=== PATIENT | male | born 1935 | race Caucasian/White ===

== ENCOUNTER 2017-04-25 17:17 | Inpatient (IN) ==
[2017-04-25 18:03] LABS: ABG Base Excess -0.7 MMOL/L (-2.5-2.5); ABG HCO3 20.6 MMOL/L (20-26); ABG PCO2 25.5 MM HG (35-48); ABG PH 7.525 (7.35-7.45); ABG PO2 55.5 MM HG (80-95); ABG TCO2 21.4 MMOL/L (23-27); Allen Test Positive
[2017-04-25 18:06] LABS: Basophils # 0.1 10*3/uL (0.0-0.2); Basophils % 0.2 % (0.0-0.8); Hemoglobin 13.3 GM/DL (14.0-18.0); Immature Granulocytes % 0.7 %; Immature Granulocytes Absolute 0.14 #; Lymphocytes # 0.7 10*3/uL (1.4-4.0); Lymphocytes % 3.3 % (21.2-54.2); Mean Corpuscular HGB Conc 33.3 GM/DL (32-36); Mean Corpuscular Hemoglobin 28 PG (27-34); Mean Corpuscular Volume 85.5 FL (87-102); Mean Platelet Volume 10.3 FL (9.6-12.0); Monocytes # 0.5 10*3/uL (0.11-0.8); Monocytes % 2.2 % (1.7-12.7); Neutrophils # 18.7 10*3/uL (1.4-7.4); Neutrophils % 93.6 % (38.7-73.9); Platelet Count 155 T/CUMM (130-400); Red Blood Count 4.68 MC/CUMM (3.8-5.5); Red Cell Distribution Width 15.4 % (9.3-17.3)
[2017-04-25 18:32] LABS: Band Neutrophils 6 % (0-10); Calcium 9.1 MG/DL (8.5-10.1); Eosinophils 1 % (0-10); Giant Platelets Few; Hypochromasia 1+; Lymphocytes 4 % (20-55); Ovalocytes Slight; Platelet Estimate Normal; Potassium 3.7 MMOL/L (3.5-5.1); Segmented Neutrophils 87 % (50-85); Total Cells Counted 100; Total Protein 6.6 G/DL (6.4-8.3)
[2017-04-25 18:34] LABS: Apearance,Urine Slightly Hazy (Clear); Bilirubin,Urine Negative (Negative); Blood, Urine Negative (Negative); Glucose,Urine (UA) Negative (Negative); Hyaline Casts,Urine 1 /LPF (0-3); Ketones,Urine Negative (Negative); Mucus,Urine Occasional /LPF (Occasional); Nitrite,Urine Negative (Negative); Protein,Urine 100 MG/DL; RBC,Urine 4 /HPF (0-4); Squamous Epithelial Cell,Urine Occasional /HPF (0-10); Urine Color Yellow (Yellow); Urine Specific Gravity 1.026 (1.001-1.035); WBC,Urine 2 /HPF (0-6)
[2017-04-25] MEDS ORDERED: ACETAMINOPHEN 325 MG TABLET PO ONE (18:40)
[2017-04-25] MEDS ORDERED: ACETAMINOPHEN 325 MG TABLET ONE (18:41)
--- NOTE | 2017-04-25 18:49 | XRay Report ---
Portable chest April 25, 2017 at 1737 Indication: Shortness of breath, pneumonia Comparison: December 04, 2016 Findings: Cardiomediastinal contours are stable with evidence of prior coronary artery bypass graft and no change in pacemaker placement. Focal scarring within the left lung base, unchanged in appearance. Lungs are otherwise clear bilaterally. No acute osseous abnormalities. Visualized upper abdomen demonstrates no acute pathology. Impression: No acute cardiopulmonary findings PROCEDURE INTERPRETED AT [facility] DEPARTMENT OF RADIOLOGY Final Report Signed by: Ever Talyor
[2017-04-25] MEDS ORDERED: SODIUM CHLORIDE 0.9% 1,000 ML IV STA (18:56)
[2017-04-25] MEDS ORDERED: AZITHROMYCIN INJ 500 MG in SODIUM CHLORIDE 0.9% 250 ML IV STA (18:56)
[2017-04-25] MEDS ORDERED: cefTRIAXone 1,000 MG in SODIUM CHLORIDE 0.9% 100 ML IV STA (18:56)
[2017-04-25] MEDS ORDERED: cefTRIAXone 1,000 MG VIAL ONE (18:59)
--- NOTE | 2017-04-25 18:59 | Emergency Department Note ---
ISiva Manpreet, am scribing for, and in the presence of, Dennis Gutierrez MD 17:44 . Matt Irwin Hans, MD, personally performed the services described in this documentation, ascribed by Rolando Paniagua in my presence, and it is both accurate and complete [id number] . Arrival - Arrival Chief Complaint: Fever Stated Complaint: fever/no strength/cant stand ED Nursing Triage Note: C/o cough, fever, weakness, and "just not feeling well"- onset yesterday. Reports temp up to 103. Mode of Arrival: Wheelchair Limitations: No Limitations Source: Patient Time Seen by Provider: 04/25/17 17:34 - History of Present Illness HPI Narrative: Pt is a 81 y/o male who presents to the ED with CC of fever, MALDONADO, and cough since yesterday. pt has had problems with PNA and was in the ICU for November 2016 for 5 days on a ventilator. Pt denies any dysuria, UTI, swelling or any recent trips. Pt c/o being weak and CALDERÓN. No other problems/complaints reported to the ED. Onset (ago): day(s) (yesterday) Consistency: constant Severity: moderate Allergies/Adverse Reactions: Allergies Allergy/AdvReac Type Severity Reaction Status Date / Time levofloxacin [From Levaquin] AdvReac Severe Confusion Verified 12/05/16 09:57 Home Medications: Home Medications Medication Instructions Recorded Confirmed Type Atorvastatin [Lipitor] 40 mg PO QPM 03/01/15 04/25/17 History Multivitamin [One Daily] 1 tablet PO QAM 03/01/15 04/25/17 History OXcarbazepine [Trileptal] 300 mg PO BEDTIME 03/01/15 04/25/17 History Tiotropium Inhalation [Spiriva 1 puff INH QAM 03/01/15 04/25/17 History Handihaler] Aspirin [Ecotrin] 81 mg PO QAM 04/29/16 04/25/17 History Fluticasone 50 Mcg Nasal [place] 1 spray BOTH NARES DAILY 07/27/16 04/25/17 History [Flonase Nasal [place]] Nitroglycerin Sl Tab [Nitrostat] 0.4 mg SL Q5M PRN 07/27/16 04/25/17 History Fluticasone/Salmeterol 500-50 1 puff INH BID 12/05/16 04/25/17 History [Advair 500-50] Albuterol/Ipratropium Neb [Duoneb] 3 ml RESP TX TID #90 vial 12/07/16 04/25/17 Rx Carvedilol [Coreg] 6.25 mg PO BID #60 tablet 12/07/16 04/25/17 Rx Bumetanide [Bumetanide] 0.25 mg PO QOTHER DAY 04/25/17 04/25/17 History Losartan Potassium [Losartan 25 mg PO QAM 04/25/17 04/25/17 History Potassium] Montelukast Sodium 10 mg PO QAM 04/25/17 04/25/17 History Omeprazole [Omeprazole] 20 mg PO QPM 04/25/17 04/25/17 History Oxybutynin Xl [Ditropan Xl] 10 mg PO QAM 04/25/17 04/25/17 History Tamsulosin HCl [Tamsulosin HCl] 0.4 mg PO QPM 04/25/17 04/25/17 History Review of System - Review of System 12 point system: reviewed and no additional remarkable complaints except as stated - Review of System Constitutional: Present: chills, fever, weakness. Absent: diaphoresis Head/Ears/Nose/Throat: Absent: sore throat Respiratory: Present: cough, respiratory distress. Absent: wheezing Cardiovascular: Present: dyspnea on exertion Gastrointestinal: Absent: abdominal pain, nausea, vomiting Genitourinary male: Absent: dysuria Musculoskeletal: Absent: arm pain, back pain Neurological: Present: headache Medical,Surgical,& Family Hx - Medical History Cardio: History of: Aneurysm, CAD, Hypertension, Pacemaker Neurology: History of: Seizures (complex partial seizure) HEENT: History of: Eye Problem (cataracts) Endocrine: History of: Dyslipidemia Respiratory: History of: COPD, Obstructive Sleep Apnea, Pneumonia Renal: History of: Renal Problems (kidney removed) Gastrointestinal: History of: Diverticulitis/ Diverticulosis, GERD, Gastrointestinal Bleed (present), Hemorrhoids Musculoskeletal: History of: Back/Neck Problems (chronic lower back pain), Musculoskeletal Problems (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) No history of: Amputation - Surgical History Cardiac Surgeries: Sugical HX of: Femoral-Popliteal Bypass Graft, Cardiac Catheterization, Cardiac Surgery (cabg and AAA) Thoracic Surgeries: Surgical HX of;: Kidney (Renal Surgery) (right nephrectomy) , Nephrectomy HEENT Surgeries: Surgical HX of: Eye Surgery (cataract surgery) Abdominal Surgeries: Surgical HX of: Abdominal Surgery, Colonoscopy Reproductive Surgeries: Surgical HX of;: Genitourinary Surgery, Vasectomy - Family History Family History: Reports;: Family Cancer (sister), Family Diabetes (father), Family Heart Disease (siblings), Family Hypertension (sibling) Denies;: Family Psychiatric Problems, Family Stroke - Social History Smoking Status: Former smoker Frequency of Alcohol Use: None Type of Drug Use: None Exam Vital Signs: Vital Signs Temperature 102.7 F H 04/25/17 18:44 Pulse Rate 110 H 04/25/17 18:15 Respiratory Rate 20 04/25/17 18:15 Blood Pressure 134/59 04/25/17 18:15 O2 Sat by Pulse Oximetry 93 L 04/25/17 18:15 - General General appearance: alert, in no apparent distress - Head Head exam: Present: atraumatic, normocephalic, normal inspection - Eye Eye exam: Present: normal appearance, PERRL, EOMI - ENT ENT exam: Present: normal exam, normal oropharynx, mucous membranes moist, TM's normal bilaterally - Neck Neck exam: Present: normal inspection, full ROM, trachea midline - Chest Chest inspection: Present: normal inspection, symmetric chest wall rise - Respiratory Respiratory exam: Present: normal lung sounds bilaterally, accessory muscle use. Absent: respiratory distress - Cardiovascular Cardiovascular exam: Present: tachycardia, normal heart sounds. Absent: murmur , rubs, gallop - Abdominal Exam Abdominal exam: Present: soft, normal bowel sounds. Absent: distention, tenderness, guarding - Extremities Exam Extremities exam: Present: normal inspection, full ROM. Absent: tenderness - Back Exam Back exam: Present: normal inspection, full ROM. Absent: tenderness - Neurological Exam Neurological exam: Present: alert, oriented X3, CN II-XII intact, reflexes normal - Psychiatric Psychiatric exam: Present: normal affect, normal mood - Skin Skin exam: Present: warm, dry, intact, normal color. Absent: pallor Course Course Narrative: This patient was evaluated with lab work as well as chest x-ray and flu swab. He had a leukocytosis of 20,000 and his lactic acid was 4.3. ABG showed some respiratory alkalosis. I discussed his presentation with the hospitalist on- call who agreed to come and see him for admission. He did meet sepsis criteria so he was treated with IV fluids and antibiotics after his blood cultures were done. Results - Labs CBC & BMP: 04/25/17 17:55 04/25/17 17:55 Lab Results: I have reviewed the patients labs Labs: Laboratory Tests 04/25/17 17:55 ABG pH 7.525 H ABG pCO2 25.5 L ABG pO2 55.5 L ABG HCO3 20.6 ABG Total CO2 21.4 L ABG O2 Saturation 93.0 L ABG Base Excess -0.7 FiO2 28.00 Laboratory Tests 04/25/17 04/25/17 04/25/17 17:55 17:55 18:16 RBC 4.68 Hgb 13.3 L Hct 40.0 L MCV 85.5 L MCH 28 MCHC 33.3 RDW 15.4 Plt Count 155 MPV 10.3 Neut % (Auto) 93.6 H Lymph % (Auto) 3.3 L Gates % (Auto) 2.2 Eos % (Auto) 0.0 Baso % (Auto) 0.2 Neut # (Auto) 18.7 H Lymph # (Auto) 0.7 L Gates # (Auto) 0.5 Eos # (Auto) 0.0 Baso # (Auto) 0.1 Total Counted 100 Immature Gran % 0.7 Nucleated RBC % 0.0 Immature Gran # 0.14 Segmented Neutrophils 87 H Band Neutrophils 6 Monocytes 2 Eosinophils 1 Nucleated RBCs # 0.00 Platelet Estimate Normal Giant Platelets Few Immature Plt Fraction 0.0 Hypochromasia 1+ Ovalocytes Slight Sodium 136 Potassium 3.7 Chloride 101 Carbon Dioxide 28 Anion Gap 10.7 BUN 17 Creatinine 1.80 H GFR Calculation 39 BUN/Creatinine Ratio 9.00 Glucose 109 H Calculated Osmolality 274.0 Calcium 9.1 Total Bilirubin 1.00 AST 15 ALT 19 Alkaline Phosphatase 90 Total Protein 6.6 Albumin 3.0 L Globulin 3.6 H Albumin/Globulin Ratio 0.8 L Urine Color Yellow Urine Appearance Slightly hazy Urine pH 5.0 Ur Specific [place] 1.026 Urine Protein 100 Urine Glucose (UA) Negative Urine Ketones Negative Urine Blood Negative Urine Nitrate Negative Urine Bilirubin Negative Urine Urobilinogen 2.0 H Urine Leukocytes Negative Urine RBC 4 Urine WBC 2 Ur Squamous Epith Cells Occasional Hyaline Casts 1 Urine Mucus Occasional Ur Culture Indicated? Not indicated Disposition Clinical Impression: Sepsis, URI (upper respiratory infection) Case discussed with: patient, patient's family Condition: Guarded Time of Disposition: 18:59
[2017-04-25] MEDS ORDERED: AZITHROMYCIN 500 MG VIAL IV ONE (19:31)
--- NOTE | 2017-04-25 21:43 | Hospitalist History & Physical ---
Assessment and Plan - Time spent with patient Time spent with patient: Greater than 30 minutes (1) Sepsis Status: Acute Assessment and plan: Admit to hospitalist services. Source undertermined at this time. WBC 20.0. Lactic acid 4.3. CXR shows no acute findings. Blood cultures drawn in ER; follow. Bolus of fluids, Azithromycin, and ceftriaxone given in ER. O2 per unit protocol. Continue IV hydration with NS at 75 ml/hr. Vancomycin 1000 mg IV Q24 hours; consult pharmacy for dosing. Zosyn 2.25 mg IV originally ordered then adjusted by pharmacy to 3.375 mg IV Q8 hours. Recheck Lactic Acid, CBC, BMP, and procalcitonin in AM. This patient is a full code. Current Visit: Yes (2) Acute renal failure Status: Acute Assessment and plan: Bolus of fluids received in the ER. Continue gentle hydration of NS at 75 ml/hr. Recheck BMP in AM. Current Visit: Yes (3) Leukocytosis Status: Acute Assessment and plan: As above for Sepsis. Current Visit: No (4) Hypertension Status: Acute Assessment and plan: Blood pressure is currently low-normal at 100/57. Hold home BP meds for now; continue to monitor. Current Visit: No (5) COPD (chronic obstructive pulmonary disease) Status: Acute Assessment and plan: Continuous pulse ox. O2 per unit protocol. Continue home DuoNebs. Current Visit: No History of Present Illness Chief complaint: fever, chills, weakness History of present illness: Mr. Garza is a 81 year old male with a reported past medical history of COPD, HTN , pneumonia, complex partial seizures, CABG, aortic aneurysm s/p repair, and right nephrectomy who presented to the ED today with complaints of fever, chills and MALDONADO x 2 days with onset of weakness and inability to walk today. He denies N/V/D and reports only occasional cough that is minimally productive. He reports that he was previously admitted to the hospital in November of this year with pneumonia, and he was also intubated at that time. His work up in the ED showed a WBC count of 20.0, lactic acid of 4.3 and ABG derangement showing respiratory alkalosis. However, his CXR was negative for any acute findings at this time, and his urine was unremarkable. Currently, he is awake, alert and oriented and reports feeling somewhat better since receiving tylenol and some IV fluids in the ED. Hospitalist services were consulted, and the patient will be admitted to the medical-surgical floor for further evaluation and management. Home Medications Medication Instructions Recorded Confirmed Type Atorvastatin [Lipitor] 40 mg PO QPM 03/01/15 04/25/17 History Multivitamin [One Daily] 1 tablet PO QAM 03/01/15 04/25/17 History OXcarbazepine [Trileptal] 300 mg PO BEDTIME 03/01/15 04/25/17 History Tiotropium Inhalation [Spiriva 1 puff INH QAM 03/01/15 04/25/17 History Handihaler] Aspirin [Ecotrin] 81 mg PO QAM 04/29/16 04/25/17 History Fluticasone 50 Mcg Nasal [place] 1 spray BOTH NARES DAILY 07/27/16 04/25/17 History [Flonase Nasal [place]] Nitroglycerin Sl Tab [Nitrostat] 0.4 mg SL Q5M PRN 07/27/16 04/25/17 History Fluticasone/Salmeterol 500-50 1 puff INH BID 12/05/16 04/25/17 History [Advair 500-50] Albuterol/Ipratropium Neb [Duoneb] 3 ml RESP TX TID #90 vial 12/07/16 04/25/17 Rx Carvedilol [Coreg] 6.25 mg PO BID #60 tablet 12/07/16 04/25/17 Rx Bumetanide [Bumetanide] 0.25 mg PO QOTHER DAY 04/25/17 04/25/17 History Losartan Potassium [Losartan 25 mg PO QAM 04/25/17 04/25/17 History Potassium] Montelukast Sodium 10 mg PO QAM 04/25/17 04/25/17 History Omeprazole [Omeprazole] 20 mg PO QPM 04/25/17 04/25/17 History Oxybutynin Xl [Ditropan Xl] 10 mg PO QAM 04/25/17 04/25/17 History Tamsulosin HCl [Tamsulosin HCl] 0.4 mg PO QPM 04/25/17 04/25/17 History Allergies Allergy/AdvReac Type Severity Reaction Status Date / Time levofloxacin [From Levaquin] AdvReac Severe Confusion Verified 12/05/16 09:57 Medical,Surgical,& Family Hx - Medical History Cardio: History of: Aneurysm, CAD, Hypertension, Pacemaker Psychological: No history of: Anxiety Disorders, Depression Neurology: History of: Seizures (complex partial seizure) HEENT: History of: Eye Problem (cataracts) Endocrine: History of: Dyslipidemia Respiratory: History of: COPD, Obstructive Sleep Apnea, Pneumonia Renal: History of: Renal Problems (kidney removed) Gastrointestinal: History of: Diverticulitis/ Diverticulosis, GERD, Gastrointestinal Bleed (present), Hemorrhoids Musculoskeletal: History of: Back/Neck Problems (chronic lower back pain), Musculoskeletal Problems (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) No history of: Amputation Hematology: No history of: Bleeding Problems, Clotting Problems Other: No history of: Cancer - Surgical History Cardiac Surgeries: Sugical HX of: Femoral-Popliteal Bypass Graft, Cardiac Catheterization, Cardiac Surgery (cabg and AAA) Thoracic Surgeries: Surgical HX of;: Kidney (Renal Surgery) (right nephrectomy) , Nephrectomy HEENT Surgeries: Surgical HX of: Eye Surgery (cataract surgery) Abdominal Surgeries: Surgical HX of: Abdominal Surgery, Colonoscopy Reproductive Surgeries: Surgical HX of;: Genitourinary Surgery, Vasectomy - Family History Family History: Reports;: Family Cancer (sister), Family Diabetes (father), Family Heart Disease (siblings), Family Hypertension (sibling) Denies;: Family Psychiatric Problems, Family Stroke - Social History Smoking Status: Former smoker (quit in 1993) Have you smoked in the last 12 months: No Frequency of Alcohol Use: None Type of Drug Use: None Marital Status: Lives With:: Spouse Functional capacity: uses cane/walker (cane) 12 point system: reviewed and no additional remarkable complaints except as stated - Constitutional Constitutional: Present: chills, fever(s), headache(s), malaise, weakness - EENT Eyes: Absent: blurry vision, diplopia, loss of vision Ears: Absent: decreased hearing, ear discharge, ear pain Nose, mouth and throat: Present: headache(s). Absent: nasal congestion, sore throat - Cardiovascular Cardiovascular: Present: dyspnea, lightheadedness. Absent: chest pain at rest, chest pain with activity, edema, orthopnea, palpitations - Respiratory Respiratory: Present: cough, dyspnea - Gastrointestinal Gastrointestinal: Absent: diarrhea, nausea, vomiting - Genitourinary Genitourinary: Absent: dysuria, flank pain, hematuria - Musculoskeletal Musculoskeletal: Present: muscle weakness, myalgias. Absent: arthralgias, back pain - Neurological Neurological: Absent: confusion, disequilibrium, dizziness, numbness, paresthesias, syncope - Psychiatric Psychiatric: Absent: anxiety, depression - Endocrine Endocrine: Absent: cold intolerance, polydipsia, polyphagia, polyuria - Hematologic/Lymphatic Hematologic/Lymphatic: Absent: easy bleeding, easy bruising Exam - Constitutional Vitals: Period Temp Pulse Resp BP Sys/[place] Pulse Ox Last 24 Hr 101.7 F-102.7 F 100-116 20-26 127-160/59-72 85-94 - Head Head exam: Present: normal inspection, normocephalic, atraumatic - Eye Eye exam: Present: EOMI Pupils: Present: KAILYN - ENT ENT exam: Present: normal external ear exam, normal oropharynx - Neck Neck exam: Absent: lymphadenopathy, tenderness, thyromegaly - Respiratory Respiratory exam: Present: decreased breath sounds, rhonchi (right posterior) - Cardiovascular Cardiovascular exam: Present: tachycardia. Absent: diastolic murmur, gallop, irregular rhythm, JVD, rubs, systolic murmur - GI/Abdominal GI/Abdominal exam: Present: normal bowel sounds, soft. Absent: guarding, tenderness, rebound - Extremities Exam Extremities exam: Present: normal inspection, normal capillary refill. Absent: edema - Back Exam Back exam: Present: normal inspection - Neurological Exam Neurological exam: Present: alert, oriented X3, CN II-XII intact (grossly) - Psychiatric Psychiatric exam: Absent: anxious, depressed - Skin Skin exam: Present: normal color, dry, intact, other (hot). Absent: rash Results - Labs CBC & BMP: 04/25/17 17:55 04/25/17 17:55 Lab Results: I have reviewed the past 24 hour labs
[2017-04-25] MEDS: VANCOMYCIN INJ 1,250 MG in SODIUM CHLORIDE 0.9% 250 ML IV SCH (22:20)
[2017-04-26] MEDS: PIPERACILLIN/TAZOBACTAM 3,375 MG in SODIUM CHLORIDE 0.9% 100 ML IV SCH ×3 (03:13→17:40)
[2017-04-26] MEDS: SODIUM CHLORIDE 0.9% 1,000 ML IV SCH ×2 (03:13→15:28)
[2017-04-26 03:31] LABS: Basophils % 0.2 % (0.0-0.8); Eosinophils % 0.1 % (0.00-10.9); Hemoglobin 11.4 GM/DL (14.0-18.0); Immature Granulocytes % 1.6 %; Immature Granulocytes Absolute 0.39 #; Lymphocytes % 8.2 % (21.2-54.2); Mean Corpuscular HGB Conc 33.5 GM/DL (32-36); Mean Corpuscular Hemoglobin 29 PG (27-34); Mean Corpuscular Volume 85.2 FL (87-102); Mean Platelet Volume 10.8 FL (9.6-12.0); Monocytes % 4.1 % (1.7-12.7); Neutrophils # 20.5 10*3/uL (1.4-7.4); Neutrophils % 85.8 % (38.7-73.9); Platelet Count 141 T/CUMM (130-400); Red Blood Count 3.99 MC/CUMM (3.8-5.5); Red Cell Distribution Width 15.4 % (9.3-17.3); White Blood Count 23.9 T/CUMM (4-12)
[2017-04-26 04:11] LABS: Calcium 8.9 MG/DL (8.5-10.1); Osmolality,Calculated 279.4 MOS/KG (273-304); Potassium 3.9 MMOL/L (3.5-5.1)
[2017-04-26 05:19] LABS: Band Neutrophils 22 % (0-10); Lymphocytes 12 % (20-55); Metamyelocytes 1 %; Segmented Neutrophils 62 % (50-85); Total Cells Counted 100
[2017-04-26 05:20] LABS: Platelet Estimate Normal
--- NOTE | 2017-04-26 07:15 | Hospitalist Progress Note ---
Hospitalist: Subjective Interval history: Pt is coughing up yellowish brown sputum. No chest pain and denies SOB. Fever curve improved. Tolerating po though reports eating less than normal. No abd pain, nausea, vomiting, or dysuria. He complains of chronic back pain and requests [place] 10/325 which he normally takes at home. Exam - Constitutional Vitals: Period Temp Pulse Resp BP Sys/[place] Pulse Ox Last 24 Hr 98.1 F-102.7 F 83-116 18-26 100-160/56-76 85-96 Exam: GEN: Awake, alert and oriented x 3, lying in bed in NAD. HEENT: No thrush. Clear sclera CV: RRR nl S1/ S2. No M/R/G LUNGS: CTAB nonlabored, diminished ABD: Soft, NT, ND, +BS EXT: Warm. No clubbing, cyanosis or edema. [place]. Results - Labs CBC & BMP: 04/26/17 02:56 04/26/17 02:57 Labs: Blood culture- pending - Impressions (1) Sepsis possibly due to acute exacerbation of COPD- improving Status: Acute Assessment and plan: On admission, WBC 20.0. Lactic acid 4.3. CXR shows no acute findings. F/U Blood cultures O2 per unit protocol as needed Cont Vancomycin and Zosyn; pharmacy following for dosing. Procalcitonin ordered and pending . Add bronchodilators Current Visit: Yes (2) Acute renal failure Status: Acute Assessment and plan: Bolus of fluids received in the ER. Continue gentle hydration of NS at 75 ml/hr. Serial labs. Current Visit: Yes (3) Leukocytosis- slightly worse Status: Acute Assessment and plan: Cont treatment of above. I have looked at orders and I am unsure if patient received any IV steroids. He is not currently taking any at this time. Recheck labs in am. Current Visit: No (4) Hypertension Status: Acute Assessment and plan: Blood pressure is currently low-normal at 100/57. Cont to hold home BP meds for now; continue to monitor. Current Visit: No (5) COPD (chronic obstructive pulmonary disease) Status: Acute Assessment and plan: Continuous pulse ox. O2 per unit protocol. Continue home DuoNebs. Current Visit: No (6) Chronic back pain - [place] prn DVT prophylaxis- add Lovenox renally dosed. D/W pt and nurse. All questions answered. I will be away several days. One of my associates will follow in my absence.
[2017-04-26] MEDS: ALBUTEROL/IPRATROPIUM 3 ML NEB RESP TX SCH ×3 (08:19→19:38)
[2017-04-26] MEDS ORDERED: ENOXAPARIN 30 MG/0.3 ML SYRINGE SUBCUT SCH (13:30)
[2017-04-26] MEDS ORDERED: MORPHINE 2 MG/1 ML SYRINGE IV ONE (16:11)
[2017-04-26] MEDS: VANCOMYCIN INJ 1,250 MG in SODIUM CHLORIDE 0.9% 250 ML IV SCH (22:05)
[2017-04-27] MEDS: PIPERACILLIN/TAZOBACTAM 3,375 MG in SODIUM CHLORIDE 0.9% 100 ML IV SCH ×2 (02:05→09:39)
[2017-04-27 04:32] LABS: Basophils # 0.1 10*3/uL (0.0-0.2); Basophils % 0.4 % (0.0-0.8); Eosinophils # 0.3 10*3/uL (0.0-0.87); Eosinophils % 1.5 % (0.00-10.9); Hematocrit 35.5 VOL% (42.0-52.0); Hemoglobin 11.8 GM/DL (14.0-18.0); Immature Granulocytes % 0.9 %; Immature Granulocytes Absolute 0.15 #; Lymphocytes # 1.6 10*3/uL (1.4-4.0); Lymphocytes % 9.5 % (21.2-54.2); Mean Corpuscular HGB Conc 33.2 GM/DL (32-36); Mean Corpuscular Hemoglobin 29 PG (27-34); Mean Corpuscular Volume 86.4 FL (87-102); Mean Platelet Volume 10.6 FL (9.6-12.0); Monocytes # 0.7 10*3/uL (0.11-0.8); Neutrophils # 14.2 10*3/uL (1.4-7.4); Neutrophils % 83.7 % (38.7-73.9); Platelet Count 172 T/CUMM (130-400); Red Blood Count 4.11 MC/CUMM (3.8-5.5); Red Cell Distribution Width 15.3 % (9.3-17.3)
[2017-04-27 04:59] LABS: Albumin 2.6 G/DL (3.4-5.0); Calcium 9.1 MG/DL (8.5-10.1); Osmolality,Calculated 279.4 MOS/KG (273-304); Phosphorous 2.2 MG/DL (2.5-4.9); Potassium 3.5 MMOL/L (3.5-5.1)
[2017-04-27 05:10] LABS: Platelet Estimate Normal
[2017-04-27] MEDS: ALBUTEROL/IPRATROPIUM 3 ML NEB RESP TX SCH ×3 (07:23→20:01)
[2017-04-27] MEDS: SODIUM CHLORIDE 0.9% 1,000 ML IV SCH ×2 (09:39→16:33)
[2017-04-27] MEDS: ENOXAPARIN 40 MG/0.4 ML SYRINGE SUBCUT SCH (13:38)
--- NOTE | 2017-04-27 13:47 | Hospitalist Progress Note ---
Assessment and Plan (1) COPD exacerbation Status: Chronic Assessment and plan: The patient is being treated for COPD and pneumonia. The patient was initially showing evidence of acute kidney injury with creatinine 1.8 which is now improved to 1.5 with hydration. I am going to change Zosyn to Merrem and continue vancomycin. We will obtain pulmonary consultation with Dr. Couch in the morning. I will supplement potassium. We will recheck electrolytes tomorrow. I reviewed the progress to date with the patient and his at the bedside. Current Visit: No (2) Pneumonia involving right lung Status: Acute Current Visit: No Hospitalist: Subjective Interval history: This is an 81-year-old man with COPD and multiple hospitalizations by Dr. Couch. The patient presents to the hospital with cough fever and shortness of breath with sputum production consistent with lung infection. The patient is improving on standard COPD and pneumonia pathway. The patient had no new complaints today. The patient is able to move about the room with minimal to moderate assistance. He is accompanied by his who states that he is feeling better. The patient denies angina. Exam - Constitutional Vitals: Period Temp Pulse Resp BP Sys/[place] Pulse Ox Last 24 Hr 97.3 F-98.6 F 60-85 18-20 121-162/61-87 93-98 General appearance: mild distress - Respiratory Respiratory exam: Present: prolonged expiratory phase, rhonchi - Cardiovascular Cardiovascular exam: Present: regular rate and rhythm - GI/Abdominal GI/Abdominal exam: Present: normal bowel sounds Results - Labs CBC & BMP: 04/27/17 04:04 04/27/17 04:04 Lab Results: I have reviewed the past 24 hour labs
[2017-04-27] MEDS: POTASSIUM CHLORIDE 20 MEQ TABLET PO SCH ×2 (14:53→18:10)
[2017-04-27] MEDS: methylPREDNISolone SOD SUC 40 MG/1 ML VIAL IV SCH (14:53)
[2017-04-27] MEDS: MEROPENEM 1,000 MG in SODIUM CHLORIDE 0.9% 100 ML IV SCH (14:53)
[2017-04-27] MEDS ORDERED: ONDANSETRON 4 MG/2 ML VIAL IV PRN (16:18)
[2017-04-27] MEDS: VANCOMYCIN INJ 1,250 MG in SODIUM CHLORIDE 0.9% 250 ML IV SCH (20:35)
[2017-04-28 03:17] LABS: Basophils % 0.2 % (0.0-0.8); Hematocrit 31.9 VOL% (42.0-52.0); Hemoglobin 10.6 GM/DL (14.0-18.0); Immature Granulocytes % 1.2 %; Immature Granulocytes Absolute 0.08 #; Lymphocytes # 0.6 10*3/uL (1.4-4.0); Lymphocytes % 9.4 % (21.2-54.2); Mean Corpuscular HGB Conc 33.2 GM/DL (32-36); Mean Corpuscular Hemoglobin 29 PG (27-34); Mean Platelet Volume 10.5 FL (9.6-12.0); Monocytes # 0.2 10*3/uL (0.11-0.8); Monocytes % 2.6 % (1.7-12.7); Neutrophils # 5.6 10*3/uL (1.4-7.4); Neutrophils % 86.6 % (38.7-73.9); Platelet Count 177 T/CUMM (130-400); Red Blood Count 3.71 MC/CUMM (3.8-5.5); Red Cell Distribution Width 15.2 % (9.3-17.3); White Blood Count 6.5 T/CUMM (4-12)
[2017-04-28 03:50] LABS: Calcium 8.8 MG/DL (8.5-10.1); Magnesium 1.8 MG/DL (1.8-2.4); Osmolality,Calculated 277.7 MOS/KG (273-304); Potassium 4.6 MMOL/L (3.5-5.1)
[2017-04-28] MEDS: MEROPENEM 1,000 MG in SODIUM CHLORIDE 0.9% 100 ML IV SCH ×2 (03:58→21:47)
[2017-04-28] MEDS: methylPREDNISolone SOD SUC 40 MG/1 ML VIAL IV SCH ×2 (03:59→21:47)
[2017-04-28] MEDS: SODIUM CHLORIDE 0.9% 1,000 ML IV SCH ×3 (03:59→17:37)
[2017-04-28] MEDS: ALBUTEROL/IPRATROPIUM 3 ML NEB RESP TX SCH (07:28)
--- NOTE | 2017-04-28 08:12 | Pulmonology Consult Note ---
Assessment and Plan (1) COPD (chronic obstructive pulmonary disease) Status: Acute Assessment and plan: Patient has severe COPD. Hypoxemia on admission. Requiring oxygen. Getting bronchodilators. Does not appear to be having an exacerbation at present Current Visit: No (2) Coronary artery disease Status: Acute Assessment and plan: No signs of heart failure at present. No active angina. BNP was normal at 93. Current Visit: No (3) Sepsis Status: Acute Assessment and plan: Had a high fever of 102.7, elevated white count of 20,000, and lactic acidosis on admission. Blood cultures are negative thus far. Urinalysis looks normal. Chest x-ray is clear. On empiric antibiotics at present. May well have had a viral infection however the elevated white count leads us to giving antibiotics. Current Visit: Yes History of Present Illness Chief complaint: Fever and aching History of present illness: Mr. Garza is a 81 year old male who was admitted 3 days ago with an acute onset fever and aching all over. He does have COPD but was not having any problems with increased cough or sputum production. Does have a history of atherosclerotic heart disease and has a pacemaker. He has not had any purulent sputum. There has been no chest pain. Home Medications Medication Instructions Recorded Confirmed Type Atorvastatin [Lipitor] 40 mg PO QPM 03/01/15 04/25/17 History Multivitamin [One Daily] 1 tablet PO QAM 03/01/15 04/25/17 History OXcarbazepine [Trileptal] 300 mg PO BEDTIME 03/01/15 04/25/17 History Tiotropium Inhalation [Spiriva 1 puff INH QAM 03/01/15 04/25/17 History Handihaler] Aspirin [Ecotrin] 81 mg PO QAM 04/29/16 04/25/17 History Fluticasone 50 Mcg Nasal [place] 1 spray BOTH NARES DAILY 07/27/16 04/25/17 History [Flonase Nasal [place]] Nitroglycerin Sl Tab [Nitrostat] 0.4 mg SL Q5M PRN 07/27/16 04/25/17 History Fluticasone/Salmeterol 500-50 1 puff INH BID 12/05/16 04/25/17 History [Advair 500-50] Albuterol/Ipratropium Neb [Duoneb] 3 ml RESP TX TID #90 vial 12/07/16 04/25/17 Rx Carvedilol [Coreg] 6.25 mg PO BID #60 tablet 12/07/16 04/25/17 Rx Bumetanide [Bumetanide] 0.25 mg PO QOTHER DAY 04/25/17 04/25/17 History Losartan Potassium [Losartan 25 mg PO QAM 04/25/17 04/25/17 History Potassium] Montelukast Sodium 10 mg PO QAM 04/25/17 04/25/17 History Omeprazole [Omeprazole] 20 mg PO QPM 04/25/17 04/25/17 History Oxybutynin Xl [Ditropan Xl] 10 mg PO QAM 04/25/17 04/25/17 History Tamsulosin HCl [Tamsulosin HCl] 0.4 mg PO QPM 04/25/17 04/25/17 History Allergies Allergy/AdvReac Type Severity Reaction Status Date / Time levofloxacin [From Levaquin] AdvReac Severe Confusion Verified 12/05/16 09:57 12 point system: reviewed and no additional remarkable complaints except as stated - Constitutional Constitutional: Present: chills, fever(s) - EENT Nose, mouth and throat: Present: headache(s) - Cardiovascular Cardiovascular: Present: dyspnea, dyspnea on exertion, lightheadedness - Respiratory Respiratory: Present: cough, dyspnea, dyspnea on exertion - Musculoskeletal Musculoskeletal: Present: muscle weakness, myalgias - Neurological Neurological: Present: abnormal gait, dizziness Exam (Pulmonay) H&P - Constitutional Vitals: Period Temp Pulse Resp BP Sys/[place] Pulse Ox Last 24 Hr 97.0 F-97.9 F 69-86 16-20 139-150/71-93 91-99 Exam: He is afebrile. He had a temperature of 102.7 on admission. Vital signs otherwise normal male. Pupils react to light. Throat is clear. Neck supple no bruits. Chest shows expiratory phase prolonged. No wheezing. Heart normal rate and rhythm no murmurs. Abdomen soft nontender no masses. Bowel sounds present. Extremities no clubbing cyanosis edema. Calves nontender. Medical,Surgical,& Family Hx - Medical History Cardio: History of: Aneurysm, CAD, Hypertension, Pacemaker Psychological: No history of: Anxiety Disorders, Depression Neurology: History of: Seizures (complex partial seizure) HEENT: History of: Eye Problem (cataracts) Endocrine: History of: Dyslipidemia Respiratory: History of: COPD, Obstructive Sleep Apnea, Pneumonia Renal: History of: Renal Problems (kidney removed) Gastrointestinal: History of: Diverticulitis/ Diverticulosis, GERD, Gastrointestinal Bleed (present), Hemorrhoids Musculoskeletal: History of: Back/Neck Problems (chronic lower back pain), Musculoskeletal Problems (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) No history of: Amputation Hematology: No history of: Bleeding Problems, Clotting Problems Other: No history of: Cancer - Surgical History Cardiac Surgeries: Sugical HX of: Femoral-Popliteal Bypass Graft, Cardiac Catheterization, Cardiac Surgery (cabg and AAA) Thoracic Surgeries: Surgical HX of;: Kidney (Renal Surgery) (right nephrectomy) , Nephrectomy HEENT Surgeries: Surgical HX of: Eye Surgery (cataract surgery) Abdominal Surgeries: Surgical HX of: Abdominal Surgery, Colonoscopy Reproductive Surgeries: Surgical HX of;: Genitourinary Surgery, Vasectomy - Family History Family History: Reports;: Family Cancer (sister), Family Diabetes (father), Family Heart Disease (siblings), Family Hypertension (sibling) Denies;: Family Psychiatric Problems, Family Stroke - Social History Smoking Status: Former smoker (quit in 1993) Frequency of Alcohol Use: None Type of Drug Use: None Results - Labs CBC & BMP: 04/28/17 02:55 04/28/17 02:55 Lab Results: I have reviewed the past 24 hour labs - Diagnostic Findings Procedure: Chest x-ray: image reviewed by me (No acute infiltrates. Multiple old left rib fractures that are healed.)
[2017-04-28] MEDS ORDERED: NITROGLYCERIN SL 0.4 MG TABLET SL PRN (09:17)
[2017-04-28] MEDS ORDERED: BUMETANIDE 1 MG TABLET PO SCH (09:30)
--- NOTE | 2017-04-28 09:51 | Hospitalist Progress Note ---
Assessment and Plan (1) COPD exacerbation Status: Chronic Assessment and plan: He appears significantly improved today. He continues on albuterol ipratropium nebulizer therapy, intravenous methylprednisolone, and intravenous antibiotics including vancomycin and meropenem. He is being followed by Dr. Couch of pulmonary. Current Visit: No (2) Sepsis Status: Acute Assessment and plan: Sepsis appears resolved. His blood pressure today is 191/83, HR 70/min, and temperature 97.2F. Current Visit: No Qualifiers: Sepsis type: sepsis due to unspecified organism Qualified Code(s): A41.9 - Sepsis, unspecified organism (3) Acute respiratory failure Status: Acute Assessment and plan: His admission arterial blood gas demonstrated pH 7.525, PCO2 25.5, and PO2 55.5. His previously well known history of chronic respiratory failure. I will repeat an arterial blood gas. Current Visit: No (4) Acute renal failure Status: Acute Assessment and plan: His BUN and creatinine on admission were 17 and 1.8 respectively. Today they are 10 and 1.2 respectively. His acute renal failure appears to have resolved with intravenous fluids. Current Visit: Yes Hospitalist: Subjective Interval history: Mr. Garza states that he is feeling much better than when he came in the hospital. He is not experiencing any shortness of breath or coughing today. He has been treated for acute exacerbation of chronic obstructive pulmonary disease with albuterol ipratropium nebulizer therapy, intravenous methylprednisolone, and intravenous antibiotics including vancomycin and meropenem. He was seen in consultation today by Dr. Couch of pulmonary. I appreciate his consultation. Exam - Constitutional Vitals: Period Temp Pulse Resp BP Sys/[place] Pulse Ox Last 24 Hr 97.0 F-97.9 F 69-86 16-20 139-191/71-93 91-99 General appearance: no acute distress - Head Head exam: Present: normal inspection - Neck Neck exam: Present: normal inspection - Respiratory Respiratory exam: Present: clear to auscultation bilaterally - Cardiovascular Cardiovascular exam: Present: regular rate and rhythm - GI/Abdominal GI/Abdominal exam: Present: normal bowel sounds, soft, other (Nontender with no palpable masses or hepatosplenomegaly.) - Extremities Exam Extremities exam: Present: normal inspection - Neurological Exam Neurological exam: Present: alert, oriented X3 - Skin Skin exam: Present: normal color, warm, intact Results - Labs CBC & BMP: 04/28/17 02:55 04/28/17 02:55
[2017-04-28] MEDS: CARVEDILOL 6.25 MG TABLET PO SCH ×2 (10:00→16:40)
[2017-04-28] MEDS ORDERED: ALBUTEROL 2.5 MG/3 ML NEB RESP TX SCH (13:00)
[2017-04-28] MEDS: IPRATROPIUM 500 MCG/2.5 ML NEB RESP TX SCH ×3 (13:27→18:59)
[2017-04-28] MEDS ORDERED: PANTOPRAZOLE 40 MG TABLET PO SCH (13:30)
[2017-04-28] MEDS: ENOXAPARIN 40 MG/0.4 ML SYRINGE SUBCUT SCH (16:40)
[2017-04-28] MEDS: ALBUTEROL 2.5 MG/3 ML NEB RESP TX SCH (19:00)
[2017-04-28] MEDS ORDERED: ATORVASTATIN 40 MG TABLET PO SCH (21:00)
[2017-04-28] MEDS ORDERED: TAMSULOSIN 0.4 MG CAPSULE PO SCH (21:00)
[2017-04-28] MEDS ORDERED: OXcarbazepine 300 MG TABLET PO SCH (21:00)
[2017-04-28] MEDS: FLUTICASONE/SALMETEROL 500-50 DISKUS 14 DOSE INH SCH (21:47)
[2017-04-28] MEDS: VANCOMYCIN INJ 1,250 MG in SODIUM CHLORIDE 0.9% 250 ML IV SCH (21:48)
[2017-04-29 03:28] LABS: ABG Base Excess -1.1 MMOL/L (-2.5-2.5); ABG HCO3 23.5 MMOL/L (20-26); ABG Oxygen Saturation 95.3 % (95-100); ABG PCO2 34.8 MM HG (35-48); ABG PH 7.425 (7.35-7.45); ABG PO2 75.5 MM HG (80-95); ABG TCO2 20.8 MMOL/L (23-27)
[2017-04-29 03:36] LABS: Basophils % 0.1 % (0.0-0.8); Hematocrit 29.6 VOL% (42.0-52.0); Hemoglobin 9.9 GM/DL (14.0-18.0); Immature Granulocytes % 0.8 %; Immature Granulocytes Absolute 0.07 #; Lymphocytes # 0.7 10*3/uL (1.4-4.0); Lymphocytes % 7.7 % (21.2-54.2); Mean Corpuscular HGB Conc 33.4 GM/DL (32-36); Mean Corpuscular Hemoglobin 28 PG (27-34); Mean Corpuscular Volume 85.1 FL (87-102); Mean Platelet Volume 10.3 FL (9.6-12.0); Monocytes # 0.2 10*3/uL (0.11-0.8); Monocytes % 2.3 % (1.7-12.7); Neutrophils % 89.1 % (38.7-73.9); Platelet Count 198 T/CUMM (130-400); Red Blood Count 3.48 MC/CUMM (3.8-5.5); Red Cell Distribution Width 15.3 % (9.3-17.3)
[2017-04-29 03:59] LABS: Calcium 8.7 MG/DL (8.5-10.1)
[2017-04-29 04:00] LABS: Osmolality,Calculated 276.8 MOS/KG (273-304); Potassium 4.4 MMOL/L (3.5-5.1)
[2017-04-29 04:35] LABS: Anisocytosis 1+; Ovalocytes Few; Platelet Estimate Adequate
[2017-04-29] MEDS ORDERED: VANCOMYCIN INJ 1,250 MG in SODIUM CHLORIDE 0.9% 250 ML IV SCH (06:00)
--- NOTE | 2017-04-29 07:16 | Pulmonology Progress Note ---
Pulmonary - PN: Subj Interval history: This 81-year-old white male came in with a high fever and dehydration. He has COPD and atherosclerotic heart disease. He has only a mild cough. His chest x- ray does not show any infiltrates. Because of his high fever, high white count , and elevated lactic acid level is not clear. Presently he is on IV antibiotics and steroids. I will change him to oral prednisone. He is stable from pulmonary standpoint feeling better. Since cultures are all negative, it would be okay with me for him to be discharged on something like oral Omnicef. Needs prednisone 40 mg daily for about 5 more days. Exam (Progress Note) - Constitutional Vitals: Period Temp Pulse Resp BP Sys/[place] Pulse Ox Last 24 Hr 96.8 F-98.1 F 66-88 18-22 141-191/73-88 92-100 Exam: He is afebrile alert. Vital signs normal. Pupils react to light. Throat is clear. Neck supple no bruits. Chest reveals a few expiratory rhonchi. Heart normal rate rhythm no murmurs. Abdomen soft nontender no masses. Bowel sounds present. Extremities no clubbing cyanosis or edema. Calves nontender. Results - Labs CBC & BMP: 04/29/17 03:16 04/29/17 03:16 Lab Results: I have reviewed the past 24 hour labs Assessment and Plan (1) COPD (chronic obstructive pulmonary disease) Status: Acute Assessment and plan: Patient has severe COPD. Hypoxemia on admission. Requiring oxygen. Getting bronchodilators. Does not appear to be having an exacerbation at present 04/29/2017 appears stable from pulmonary standpoint as far as his COPD is concerned. Changed his Solu-Medrol to prednisone. Defer to primary service on antibiotics. Current Visit: No (2) Coronary artery disease Status: Acute Assessment and plan: No signs of heart failure at present. No active angina. BNP was normal at 93. 04/29/2017 no signs of heart failure or angina. Current Visit: No (3) Sepsis Status: Acute Assessment and plan: Had a high fever of 102.7, elevated white count of 20,000, and lactic acidosis on admission. Blood cultures are negative thus far. Urinalysis looks normal. Chest x-ray is clear. On empiric antibiotics at present. May well have had a viral infection however the elevated white count leads us to giving antibiotics. 04/29/17 this is controlled. Cultures have been negative thus far. Current Visit: Yes
[2017-04-29] MEDS: ALBUTEROL 2.5 MG/3 ML NEB RESP TX SCH (07:29)
--- NOTE | 2017-04-29 07:47 | XRay Report ---
Exam: XR chest 1V Date: 04/29/2017 4:00 AM Indication: COPD exacerbation Comparison: 04/25/2017 Technical: AP Findings: Cardiomegaly is present with a cardiac pacing device with atrial ventricular leads. Sternotomy wires are present. Low volume effusion present left base with underlying atelectatic change. Old left rib fractures are also present and pleural thickening. No pneumothorax. ASVD is present. A few scattered reticular nodular densities are present. Impression: 1. Cardiomegaly with low volume effusion and atelectatic change left base 2. Cardiomegaly and previous sternotomy and stepsister cardiac pacing device PROCEDURE INTERPRETED AT [facility] DEPARTMENT OF RADIOLOGY Final Report Signed by: Dr. Fuentes Loco
[2017-04-29] MEDS: IPRATROPIUM 500 MCG/2.5 ML NEB RESP TX SCH (08:36)
[2017-04-29] MEDS ORDERED: MONTELUKAST 10 MG TABLET PO SCH (09:00)
[2017-04-29] MEDS ORDERED: ASPIRIN EC 81 MG TABLET PO SCH (09:00)
[2017-04-29] MEDS ORDERED: predniSONE 20 MG TABLET PO SCH (09:00)
[2017-04-29] MEDS ORDERED: FLUTICASONE 50 MCG NASAL SPRAY 16 GM BOTTLE BOTH NARES SCH (09:00)
[2017-04-29] MEDS ORDERED: OXYBUTYNIN XL 10 MG TABLET PO SCH (09:00)
[2017-04-29] MEDS ORDERED: LOSARTAN 25 MG TABLET PO SCH (09:00)
[2017-04-29] MEDS ORDERED: MULTIVITAMIN (CENTRUM) TABLET PO SCH (09:00)
[2017-04-29] MEDS: FLUTICASONE/SALMETEROL 500-50 DISKUS 14 DOSE INH SCH (10:14)
[2017-04-29] MEDS: CARVEDILOL 6.25 MG TABLET PO SCH (10:14)
[2017-04-29] MEDS: MEROPENEM 1,000 MG in SODIUM CHLORIDE 0.9% 100 ML IV SCH (10:17)
[2017-04-29] MEDS: ENOXAPARIN 40 MG/0.4 ML SYRINGE SUBCUT SCH (10:18)
--- NOTE | 2017-04-29 10:52 | Discharge Summary ---
Hospital Course - Hospital Course Hospital Course: Patient was hospitalized with acute exacerbation of COPD, sepsis, and acute renal failure. He was seen in consultation by Dr. Couch of Pulmonary. He was treated with IV antibiotics, IV steroids, Duonebs, and IV normal saline. His acute renal failure resolved as did his sepsis. By the time of discharge he was not experiencing any dyspnea or coughing. Diagnosis - Discharge Diagnosis (1) COPD exacerbation Status: Acute (2) Sepsis Status: Acute (3) Acute respiratory failure Status: Acute (4) Acute renal failure Status: Acute Discharge Plan - Discharge Data Condition at Discharge: Stable Discharge Diet: advance to your usual diet Activity: resume usual activities as tolerated - Discharge Medications New predniSONE TAB [PredniSONE] 20 mg PO DAILY #7 tablet Cefdinir 300 mg PO BID #10 capsule Continue Multivitamin [One Daily] 1 tablet PO QAM Atorvastatin [Lipitor] 40 mg PO QPM Tiotropium Inhalation [Spiriva Handihaler] 1 puff INH QAM OXcarbazepine [Trileptal] 300 mg PO BEDTIME Aspirin [Ecotrin] 81 mg PO QAM Nitroglycerin Sl Tab [Nitrostat] 0.4 mg SL Q5M PRN PRN Reason: Chest Pain Fluticasone 50 Mcg Nasal [place] [Flonase Nasal [place]] 1 spray BOTH NARES DAILY Albuterol/Ipratropium Neb [Duoneb] 3 ml RESP TX TID #90 vial Carvedilol [Coreg] 6.25 mg PO BID #60 tablet Bumetanide 0.25 mg PO QOTHER DAY Omeprazole 20 mg PO QPM Montelukast Sodium 10 mg PO QAM Losartan Potassium 25 mg PO QAM Oxybutynin Xl [Ditropan Xl] 10 mg PO QAM Tamsulosin HCl 0.4 mg PO QPM Fluticasone/Salmeterol 500-50 [Advair 500-50] 1 puff INH BID - Follow Up or Referral - Forms/Instructions Exam - Constitutional Vitals: Period Temp Pulse Resp BP Sys/[place] Pulse Ox Last 24 Hr 96.8 F-98.1 F 66-88 18-22 141-192/73-99 92-100 Discharge Results Procedures and tests throughout hospitalization: Pending Orders 04/25/17 17:55 Blood Culture Stat 04/26/17 02:56 Procalcitonin, S IN AM Labs on day of discharge: Labs from last 24 hours 04/29/17 04/29/17 04/29/17 07:28 03:16 03:16 WBC 9.0 D RBC 3.48 L Hgb 9.9 L Hct 29.6 L MCV 85.1 L MCH 28 MCHC 33.4 RDW 15.3 Plt Count 198 MPV 10.3 Neut % (Auto) 89.1 H Lymph % (Auto) 7.7 L [place] % (Auto) 2.3 Eos % (Auto) 0.0 Baso % (Auto) 0.1 Neut # (Auto) 8.0 H Lymph # (Auto) 0.7 L [place] # (Auto) 0.2 Eos # (Auto) 0.0 Baso # (Auto) 0.0 Immature Gran % 0.8 Nucleated RBC % 0.0 Immature Gran # 0.07 Nucleated RBCs # 0.00 Platelet Estimate Adequate Immature Plt Fraction 0.0 Anisocytosis 1+ Ovalocytes Few ABG pH ABG pCO2 ABG pO2 ABG HCO3 ABG Total CO2 ABG O2 Saturation ABG Base Excess Sodium 137 Potassium 4.4 Chloride 106 Carbon Dioxide 25 Anion Gap 10.4 BUN 14 Creatinine 1.10 GFR Calculation 70 BUN/Creatinine Ratio 12.00 Glucose 148 H POC Glucose 133 H Calculated Osmolality 276.8 Calcium 8.7 Vancomycin Trough 04/29/17 04/28/17 03:15 19:19 WBC RBC Hgb Hct MCV MCH MCHC RDW Plt Count MPV Neut % (Auto) Lymph % (Auto) [place] % (Auto) Eos % (Auto) Baso % (Auto) Neut # (Auto) Lymph # (Auto) [place] # (Auto) Eos # (Auto) Baso # (Auto) Immature Gran % Nucleated RBC % Immature Gran # Nucleated RBCs # Platelet Estimate Immature Plt Fraction Anisocytosis Ovalocytes ABG pH 7.425 ABG pCO2 34.8 L ABG pO2 75.5 L ABG HCO3 23.5 ABG Total CO2 20.8 L ABG O2 Saturation 95.3 ABG Base Excess -1.1 Sodium Potassium Chloride Carbon Dioxide Anion Gap BUN Creatinine GFR Calculation BUN/Creatinine Ratio Glucose POC Glucose Calculated Osmolality Calcium Vancomycin Trough 12.3 Preliminary micro results at discharge 04/25/17 17:55 Blood Culture - Preliminary Blood No growth at 3 days 04/25/17 17:55 Blood Culture - Preliminary Blood No growth at 3 days DS: Provider Date of admission: 04/25/17 19:11 Primary care physician: Jan Couch MD Attending physician on admission: Ronald Sin MD Consults: 04/25/17 19:58 Consult to Pharmacy [CONS] Routine Reason for Pharmacy Consult: Dose/Manage Vancomycin 04/27/17 13:43 Consult to Physician [CONS] Routine Comment: please call consult on Thursday. COPD Consulting Provider: Jan Couch Discharging clinician: John Munoz
[2017-04-29 11:57] VITALS: BP 188/81
[2017-04-29] MEDS: SODIUM CHLORIDE 0.9% 1,000 ML IV SCH (15:00)
== END 2017-04-29 14:30 | disposition home or self-care (01) | DRG 871 ==
LOC: N.ED 17:17 → SUATTDRO 19:11 → N.EDINP 19:11 → N.2E 19:52
PROVIDERS: ADMIT Internal Medicine

== ENCOUNTER 2018-12-04 06:38 | Inpatient (IN) ==
[2018-12-04] MEDS ORDERED: PIPERACILLIN/TAZOBACTAM 3,375 MG in SODIUM CHLORIDE 0.9% 100 ML IV STA (07:03)
[2018-12-04 07:22] LABS: Basophils # 0.1 10*3/uL (0.0-0.2); Basophils % 0.3 % (0.0-0.8); Eosinophils % 0.1 % (0.00-10.9); Hematocrit 46.1 VOL% (42.0-52.0); Hemoglobin 14.7 GM/DL (14.0-18.0); Immature Granulocytes % 0.9 %; Immature Granulocytes Absolute 0.22 #; Lymphocytes # 1.2 10*3/uL (1.4-4.0); Lymphocytes % 4.5 % (21.2-54.2); Mean Corpuscular HGB Conc 31.9 GM/DL (32-36); Mean Corpuscular Hemoglobin 29 PG (27-34); Mean Corpuscular Volume 91.1 FL (87-102); Mean Platelet Volume 10.7 FL (9.6-12.0); Monocytes # 1.5 10*3/uL (0.11-0.8); Monocytes % 5.8 % (1.7-12.7); Neutrophils # 22.8 10*3/uL (1.4-7.4); Neutrophils % 88.4 % (38.7-73.9); Platelet Count 185 T/CUMM (130-400); Red Blood Count 5.06 MC/CUMM (3.8-5.5); Red Cell Distribution Width 14.6 % (9.3-17.3); White Blood Count 25.8 T/CUMM (4-12)
[2018-12-04 07:42] LABS: Albumin 3.4 G/DL (3.4-5.0); Bilirubin,Total 0.8 MG/DL (0.2-1.0); Calcium 8.9 MG/DL (8.5-10.1); Potassium 3.8 MMOL/L (3.5-5.1)
[2018-12-04 08:54] LABS: Band Neutrophils 32 % (0-10); Lymphocytes 2 % (20-55); Platelet Estimate Normal; Segmented Neutrophils 56 % (50-85); Total Cells Counted 100
[2018-12-04 08:55] LABS: Anisocytosis Slight; Macrocytosis Slight
[2018-12-04] MEDS ORDERED: ONDANSETRON 4 MG/2 ML VIAL IV PRN (09:04)
[2018-12-04] MEDS ORDERED: PROMETHAZINE 25 MG/1 ML VIAL IM PRN (09:04)
[2018-12-04] MEDS ORDERED: SODIUM CHLORIDE 0.9% 1,000 ML IV STA (09:08)
[2018-12-04 11:20] LABS: Apearance,Urine CLOUDY (Clear); Bilirubin,Urine Negative (Negative); Blood, Urine Small mg/dL (Negative); Glucose,Urine (UA) Negative (Negative); Ketones,Urine Negative (Negative); Mucus,Urine Occasional /LPF (Occasional); Nitrite,Urine Negative (Negative); Protein,Urine 30 MG/DL; RBC,Urine 5 /HPF (0-4); Urine Color Yellow (Yellow); Urine Specific Gravity 1.014 (1.001-1.035); WBC,Urine <1 /HPF (0-6)
[2018-12-04] MEDS: SODIUM CHLORIDE 0.9% 1,000 ML IV SCH (13:40)
[2018-12-04] MEDS: ENOXAPARIN 30 MG/0.3 ML SYRINGE SUBCUT SCH (13:54)
[2018-12-04] MEDS: PIPERACILLIN/TAZOBACTAM 3,375 MG in SODIUM CHLORIDE 0.9% 100 ML IV SCH ×2 (15:49→23:43)
[2018-12-04] MEDS: ALBUTEROL/IPRATROPIUM 3 ML NEB RESP TX SCH ×2 (15:55→20:10)
[2018-12-04] MEDS: DORNASE ALFA 2.5 MG/2.5 ML VIAL RESP TX SCH ×2 (15:55→20:17)
[2018-12-04] MEDS: ACETAMINOPHEN 325 MG TABLET PO PRN (17:21)
[2018-12-05 00:31] LABS: Apearance,Urine CLEAR (Clear); Bilirubin,Urine Negative (Negative); Blood, Urine Moderate mg/dL (Negative); Glucose,Urine (UA) Negative (Negative); Ketones,Urine Negative (Negative); Nitrite,Urine Negative (Negative); Protein,Urine Negative; RBC,Urine 1 /HPF (0-4); Urine Color Straw (Yellow); Urine Specific Gravity 1.005 (1.001-1.035); Urine Urobilinogen < 2.0 EU/DL (0.2-1.0); WBC,Urine 1 /HPF (0-6)
[2018-12-05] MEDS: ALBUTEROL/IPRATROPIUM 3 ML NEB RESP TX SCH ×4 (00:45→20:50)
[2018-12-05 04:52] LABS: Basophils # 0.1 10*3/uL (0.0-0.2); Basophils % 0.4 % (0.0-0.8); Eosinophils # 0.3 10*3/uL (0.0-0.87); Eosinophils % 1.2 % (0.00-10.9); Hematocrit 38.9 VOL% (42.0-52.0); Hemoglobin 12.2 GM/DL (14.0-18.0); Immature Granulocytes % 0.7 %; Immature Granulocytes Absolute 0.16 #; Lymphocytes # 2.8 10*3/uL (1.4-4.0); Lymphocytes % 12.4 % (21.2-54.2); Mean Corpuscular HGB Conc 31.4 GM/DL (32-36); Mean Corpuscular Hemoglobin 29 PG (27-34); Mean Platelet Volume 11.1 FL (9.6-12.0); Monocytes % 4.2 % (1.7-12.7); Neutrophils # 18.2 10*3/uL (1.4-7.4); Neutrophils % 81.1 % (38.7-73.9); Platelet Count 159 T/CUMM (130-400); Red Blood Count 4.23 MC/CUMM (3.8-5.5); Red Cell Distribution Width 14.9 % (9.3-17.3); White Blood Count 22.5 T/CUMM (4-12)
[2018-12-05 05:25] LABS: Band Neutrophils 7 % (0-10); Eosinophils 2 % (0-10); Lymphocytes 7 % (20-55); Segmented Neutrophils 80 % (50-85)
[2018-12-05 05:26] LABS: Platelet Estimate Adequate; Total Cells Counted 100
[2018-12-05 05:46] LABS: Calcium 8.5 MG/DL (8.5-10.1); Osmolality,Calculated 283.1 MOS/KG (273-304); Potassium 4.2 MMOL/L (3.5-5.1); Thyroid Stimulating Hormone 1.65 uIU/ml (0.358-3.74)
[2018-12-05] MEDS: SODIUM CHLORIDE 0.9% 1,000 ML IV SCH ×2 (06:51)
[2018-12-05] MEDS: DORNASE ALFA 2.5 MG/2.5 ML VIAL RESP TX SCH ×2 (07:20→20:50)
[2018-12-05] MEDS: PIPERACILLIN/TAZOBACTAM 3,375 MG in SODIUM CHLORIDE 0.9% 100 ML IV SCH ×2 (09:24→17:22)
[2018-12-05] MEDS: PANTOPRAZOLE 40 MG TABLET PO SCH (09:25)
[2018-12-05] MEDS: ENOXAPARIN 30 MG/0.3 ML SYRINGE SUBCUT SCH (12:58)
[2018-12-05] MEDS ORDERED: NITROGLYCERIN SL 0.4 MG TABLET SL PRN (13:08)
[2018-12-05] MEDS: CARVEDILOL 6.25 MG TABLET PO SCH (17:20)
[2018-12-05] MEDS ORDERED: Omeprazole [Omeprazole] 20 MG PO SCH (19:00)
[2018-12-05] MEDS ORDERED: ALBUTEROL/IPRATROPIUM 3 ML NEB RESP TX SCH (19:00)
[2018-12-05] MEDS: TAMSULOSIN 0.4 MG CAPSULE PO SCH (19:07)
[2018-12-05] MEDS ORDERED: CARVEDILOL 6.25 MG TABLET PO SCH (21:00)
[2018-12-05] MEDS: MEMANTINE 10 MG TABLET PO SCH (21:06)
[2018-12-05] MEDS: FLUTICASONE/SALMETEROL 500-50 DISKUS 14 DOSE INH SCH (21:06)
[2018-12-05] MEDS: ATORVASTATIN 40 MG TABLET PO SCH (21:06)
[2018-12-06] MEDS: PIPERACILLIN/TAZOBACTAM 3,375 MG in SODIUM CHLORIDE 0.9% 100 ML IV SCH ×3 (00:36→17:11)
[2018-12-06] MEDS: ALBUTEROL/IPRATROPIUM 3 ML NEB RESP TX SCH ×4 (00:53→19:30)
[2018-12-06 05:08] LABS: Basophils # 0.1 10*3/uL (0.0-0.2); Basophils % 0.5 % (0.0-0.8); Eosinophils # 0.3 10*3/uL (0.0-0.87); Eosinophils % 2.3 % (0.00-10.9); Hematocrit 33.4 VOL% (42.0-52.0); Hemoglobin 10.7 GM/DL (14.0-18.0); Immature Granulocytes % 0.5 %; Immature Granulocytes Absolute 0.06 #; Lymphocytes # 1.8 10*3/uL (1.4-4.0); Lymphocytes % 13.9 % (21.2-54.2); Mean Corpuscular Hemoglobin 29 PG (27-34); Mean Corpuscular Volume 90.5 FL (87-102); Monocytes # 0.8 10*3/uL (0.11-0.8); Monocytes % 6.3 % (1.7-12.7); Neutrophils # 10.1 10*3/uL (1.4-7.4); Neutrophils % 76.5 % (38.7-73.9); Platelet Count 146 T/CUMM (130-400); Red Blood Count 3.69 MC/CUMM (3.8-5.5); Red Cell Distribution Width 14.7 % (9.3-17.3); White Blood Count 13.3 T/CUMM (4-12)
[2018-12-06 05:29] LABS: Calcium 8.3 MG/DL (8.5-10.1); Osmolality,Calculated 281.1 MOS/KG (273-304); Potassium 3.8 MMOL/L (3.5-5.1)
[2018-12-06] MEDS ORDERED: IPRATROPIUM 500 MCG/2.5 ML NEB RESP TX SCH (07:00)
[2018-12-06] MEDS: DORNASE ALFA 2.5 MG/2.5 ML VIAL RESP TX SCH ×2 (07:25→19:36)
[2018-12-06] MEDS: LOSARTAN 25 MG TABLET PO SCH (09:23)
[2018-12-06] MEDS: PANTOPRAZOLE 40 MG TABLET PO SCH (09:24)
[2018-12-06] MEDS: MEMANTINE 10 MG TABLET PO SCH ×2 (09:24→20:39)
[2018-12-06] MEDS: CARVEDILOL 6.25 MG TABLET PO SCH ×2 (09:24→17:11)
[2018-12-06] MEDS: ASPIRIN EC 81 MG TABLET PO SCH (09:24)
[2018-12-06] MEDS: ENOXAPARIN 40 MG/0.4 ML SYRINGE SUBCUT SCH (09:24)
[2018-12-06] MEDS: NORTRIPTYLINE 10 MG CAPSULE PO SCH (09:24)
[2018-12-06] MEDS: MULTIVITAMIN (CENTRUM) TABLET PO SCH (09:24)
[2018-12-06] MEDS: FLUTICASONE/SALMETEROL 500-50 DISKUS 14 DOSE INH SCH ×2 (09:25→20:46)
[2018-12-06] MEDS: FLUTICASONE 50 MCG NASAL SPRAY 16 GM BOTTLE BOTH NARES SCH (09:26)
[2018-12-06] MEDS: ACETAMINOPHEN 325 MG TABLET PO PRN (20:39)
[2018-12-06] MEDS: ATORVASTATIN 40 MG TABLET PO SCH (20:39)
[2018-12-06] MEDS: TAMSULOSIN 0.4 MG CAPSULE PO SCH (20:39)
[2018-12-07] MEDS: ALBUTEROL/IPRATROPIUM 3 ML NEB RESP TX SCH ×3 (00:19→13:23)
[2018-12-07] MEDS: PIPERACILLIN/TAZOBACTAM 3,375 MG in SODIUM CHLORIDE 0.9% 100 ML IV SCH ×2 (01:30→09:15)
[2018-12-07 05:07] LABS: Basophils # 0.1 10*3/uL (0.0-0.2); Basophils % 0.5 % (0.0-0.8); Eosinophils # 0.6 10*3/uL (0.0-0.87); Eosinophils % 5.3 % (0.00-10.9); Hematocrit 35.6 VOL% (42.0-52.0); Hemoglobin 11.3 GM/DL (14.0-18.0); Immature Granulocytes % 0.6 %; Immature Granulocytes Absolute 0.06 #; Lymphocytes # 2.3 10*3/uL (1.4-4.0); Lymphocytes % 21.4 % (21.2-54.2); Mean Corpuscular HGB Conc 31.7 GM/DL (32-36); Mean Corpuscular Hemoglobin 29 PG (27-34); Mean Corpuscular Volume 91.3 FL (87-102); Mean Platelet Volume 11.2 FL (9.6-12.0); Monocytes # 0.7 10*3/uL (0.11-0.8); Monocytes % 6.7 % (1.7-12.7); Neutrophils % 65.5 % (38.7-73.9); Platelet Count 162 T/CUMM (130-400); Red Cell Distribution Width 14.7 % (9.3-17.3); White Blood Count 10.7 T/CUMM (4-12)
[2018-12-07 05:42] LABS: Calcium 8.5 MG/DL (8.5-10.1); Potassium 3.9 MMOL/L (3.5-5.1)
[2018-12-07] MEDS ORDERED: LACTATED RINGERS 500 ML IV ONE (07:00)
[2018-12-07] MEDS: DORNASE ALFA 2.5 MG/2.5 ML VIAL RESP TX SCH (07:05)
[2018-12-07] MEDS ORDERED: BUMETANIDE 1 MG TABLET PO SCH (09:00)
[2018-12-07] MEDS ORDERED: PROPOFOL 200 MG/20 ML VIAL IV ONE (10:00)
[2018-12-07] MEDS ORDERED: LIDOCAINE 2% 5 ML VIAL ONE (10:00)
[2018-12-07 13:17] VITALS: BP 168/71
[2018-12-07] MEDS: ASPIRIN EC 81 MG TABLET PO SCH (14:06)
[2018-12-07] MEDS: MULTIVITAMIN (CENTRUM) TABLET PO SCH (14:06)
[2018-12-07] MEDS: FLUTICASONE/SALMETEROL 500-50 DISKUS 14 DOSE INH SCH (14:06)
[2018-12-07] MEDS: MEMANTINE 10 MG TABLET PO SCH (14:06)
[2018-12-07] MEDS: PANTOPRAZOLE 40 MG TABLET PO SCH (14:06)
[2018-12-07] MEDS: CARVEDILOL 6.25 MG TABLET PO SCH (14:06)
[2018-12-07] MEDS: LOSARTAN 25 MG TABLET PO SCH (14:06)
[2018-12-07] MEDS: ENOXAPARIN 40 MG/0.4 ML SYRINGE SUBCUT SCH (14:07)
[2018-12-07] MEDS: FLUTICASONE 50 MCG NASAL SPRAY 16 GM BOTTLE BOTH NARES SCH (14:07)
[2018-12-07] MEDS: NORTRIPTYLINE 10 MG CAPSULE PO SCH (14:07)
== END 2018-12-07 14:50 | disposition home or self-care (01) | DRG 178 ==
LOC: N.ED 06:38 → EDUNIT# 06:38 → EDBD 06:38 → SUATTDRO 08:54 → N.EDINP 08:54 → N.2E 14:19
PROVIDERS: ADMIT Internal Medicine; ATTEND Internal Medicine

== ENCOUNTER 2019-05-14 12:33 | Inpatient (IN) ==
[2019-05-14] MEDS ORDERED: LACTATED RINGERS 1,000 ML IV ONE ×2 (13:03→16:00)
[2019-05-14] MEDS ORDERED: ACETAMINOPHEN 500 MG TABLET PO STA (13:06)
[2019-05-14 13:15] LABS: Basophils # 0.1 10*3/uL (0.0-0.2); Basophils % 0.4 % (0.0-0.8); Eosinophils # 0.1 10*3/uL (0.0-0.87); Eosinophils % 0.3 % (0.00-10.9); Hematocrit 44.3 VOL% (42.0-52.0); Hemoglobin 14.2 GM/DL (14.0-18.0); Immature Granulocytes % 1.3 %; Immature Granulocytes Absolute 0.33 #; Lymphocytes # 1.4 10*3/uL (1.4-4.0); Lymphocytes % 5.3 % (21.2-54.2); Mean Corpuscular HGB Conc 32.1 GM/DL (32-36); Mean Corpuscular Volume 89.7 FL (87-102); Mean Platelet Volume 10.4 FL (9.6-12.0); Monocytes % 6.9 % (1.7-12.7); Neutrophils % 85.8 % (38.7-73.9); Platelet Count 190 T/CUMM (130-400); Red Blood Count 4.94 MC/CUMM (3.8-5.5); Red Cell Distribution Width 14.8 % (9.3-17.3); White Blood Count 26.2 T/CUMM (4-12)
[2019-05-14 13:48] LABS: Alanine Aminotransferase 17 U/L (16-61); Albumin 3.3 G/DL (3.4-5.0); Alkaline Phosphatase 103 U/L (45-117); Aspartate Amino Transferase 16 U/L (0-37); Blood Urea Nitrogen 16 MG/DL (7-18); Calcium 9.3 MG/DL (8.5-10.1); Estimated Glom Filtration Rate 38 ML/MIN; Glucose 85 MG/DL (74-106); Osmolality,Calculated 274.7 MOS/KG (273-304); Total Protein 7.3 G/DL (6.4-8.3)
[2019-05-14 13:53] LABS: Band Neutrophils 1 % (0-10); Lymphocytes 21 % (20-55); Platelet Estimate Normal; Segmented Neutrophils 71 % (50-85); Total Cells Counted 100
[2019-05-14 13:54] LABS: Hypochromasia Slight; Microcytosis Slight
[2019-05-14] MEDS ORDERED: cefTRIAXone 1,000 MG in SODIUM CHLORIDE 0.9% 100 ML IV STA (14:12)
[2019-05-14] MEDS ORDERED: ACETAMINOPHEN 325 MG TABLET PO PRN (14:39)
[2019-05-14] MEDS ORDERED: ONDANSETRON 4 MG/2 ML VIAL IV PRN (14:45)
[2019-05-14] MEDS ORDERED: ALBUTEROL 1.25 MG/3 ML NEB RESP TX SCH (15:00)
[2019-05-14 15:49] LABS: Apearance,Urine CLEAR (Clear); Bilirubin,Urine Negative (Negative); Blood, Urine Small mg/dL (Negative); Glucose,Urine (UA) Negative (Negative); Ketones,Urine Negative (Negative); Mucus,Urine Occasional /LPF (Occasional); Nitrite,Urine Negative (Negative); Protein,Urine Negative; RBC,Urine 7 /HPF (0-4); Squamous Epithelial Cell,Urine Occasional /HPF (0-10); Urine Color Yellow (Yellow); Urine Urobilinogen < 2.0 EU/DL (0.2-1.0); WBC,Urine 7 /HPF (0-6)
[2019-05-14] MEDS: AZITHROMYCIN INJ 500 MG in SODIUM CHLORIDE 0.9% 250 ML IV SCH (17:12)
[2019-05-14] MEDS: SODIUM CHLORIDE 0.9% 1,000 ML IV SCH (17:12)
[2019-05-14] MEDS: ALBUTEROL 1.25 MG/3 ML NEB RESP TX SCH (19:04)
[2019-05-15] MEDS: ALBUTEROL 1.25 MG/3 ML NEB RESP TX SCH ×4 (01:31→19:47)
[2019-05-15 05:47] LABS: Basophils # 0.1 10*3/uL (0.0-0.2); Basophils % 0.5 % (0.0-0.8); Eosinophils # 0.2 10*3/uL (0.0-0.87); Eosinophils % 0.6 % (0.00-10.9); Hematocrit 36.9 VOL% (42.0-52.0); Hemoglobin 11.9 GM/DL (14.0-18.0); Immature Granulocytes % 1.4 %; Immature Granulocytes Absolute 0.42 #; Lymphocytes # 2.8 10*3/uL (1.4-4.0); Lymphocytes % 9.5 % (21.2-54.2); Mean Corpuscular HGB Conc 32.2 GM/DL (32-36); Mean Corpuscular Volume 89.8 FL (87-102); Mean Platelet Volume 10.2 FL (9.6-12.0); Monocytes % 5.4 % (1.7-12.7); Neutrophils % 82.6 % (38.7-73.9); Platelet Count 164 T/CUMM (130-400); Red Blood Count 4.11 MC/CUMM (3.8-5.5); Red Cell Distribution Width 15.1 % (9.3-17.3); White Blood Count 29.5 T/CUMM (4-12)
[2019-05-15 06:11] LABS: Albumin 2.5 G/DL (3.4-5.0); Bilirubin,Total 0.4 MG/DL (0.2-1.0); Calcium 8.7 MG/DL (8.5-10.1); Osmolality,Calculated 279.4 MOS/KG (273-304); Risk Ratio 3.76; Thyroid Stimulating Hormone 1.1 uIU/ml (0.358-3.74); Total Protein 5.9 G/DL (6.4-8.3); VLDL CHOLESTEROL 9.2 MG/DL
[2019-05-15 06:14] LABS: Hypochromasia Slight; Microcytosis Slight; Platelet Estimate Adequate
[2019-05-15] MEDS: SODIUM CHLORIDE 0.9% 1,000 ML IV SCH ×2 (06:23→17:52)
[2019-05-15] MEDS ORDERED: MAGNESIUM SULF RIDER 4 GM in PREMIX 1 EACH IV PRN (07:17)
[2019-05-15] MEDS: ENOXAPARIN 40 MG/0.4 ML SYRINGE SUBCUT SCH (08:11)
[2019-05-15] MEDS: cefTRIAXone 1,000 MG in SYRINGE 1 EACH IV SCH (08:12)
[2019-05-15] MEDS: PANTOPRAZOLE 40 MG TABLET PO SCH (08:12)
[2019-05-15] MEDS: MAGNESIUM SULF RIDER 2 GM in PREMIX 1 EACH IV PRN (08:13)
[2019-05-15] MEDS ORDERED: ENOXAPARIN 40 MG/0.4 ML SYRINGE SUBCUT SCH (09:00)
[2019-05-15] MEDS: AZITHROMYCIN INJ 500 MG in SODIUM CHLORIDE 0.9% 250 ML IV SCH (15:59)
[2019-05-16] MEDS: ALBUTEROL 1.25 MG/3 ML NEB RESP TX SCH ×4 (00:32→18:30)
[2019-05-16 05:16] LABS: Basophils # 0.1 10*3/uL (0.0-0.2); Basophils % 0.3 % (0.0-0.8); Eosinophils # 0.4 10*3/uL (0.0-0.87); Eosinophils % 2.1 % (0.00-10.9); Hematocrit 35.9 VOL% (42.0-52.0); Hemoglobin 11.5 GM/DL (14.0-18.0); Immature Granulocytes % 0.6 %; Immature Granulocytes Absolute 0.11 #; Lymphocytes # 2.5 10*3/uL (1.4-4.0); Lymphocytes % 14.1 % (21.2-54.2); Mean Corpuscular Volume 89.5 FL (87-102); Mean Platelet Volume 10.7 FL (9.6-12.0); Monocytes % 4.8 % (1.7-12.7); Neutrophils % 78.1 % (38.7-73.9); Platelet Count 170 T/CUMM (130-400); Red Blood Count 4.01 MC/CUMM (3.8-5.5); Red Cell Distribution Width 15.2 % (9.3-17.3); White Blood Count 17.3 T/CUMM (4-12)
[2019-05-16 05:43] LABS: Albumin 2.6 G/DL (3.4-5.0); Bilirubin,Total 0.6 MG/DL (0.2-1.0); Calcium 8.6 MG/DL (8.5-10.1); Osmolality,Calculated 286.8 MOS/KG (273-304); Total Protein 6.5 G/DL (6.4-8.3)
[2019-05-16] MEDS: SODIUM CHLORIDE 0.9% 1,000 ML IV SCH ×2 (08:16→21:52)
[2019-05-16] MEDS: ENOXAPARIN 40 MG/0.4 ML SYRINGE SUBCUT SCH (08:18)
[2019-05-16] MEDS: cefTRIAXone 1,000 MG in SYRINGE 1 EACH IV SCH (08:19)
[2019-05-16] MEDS: PANTOPRAZOLE 40 MG TABLET PO SCH (08:19)
[2019-05-16] MEDS: AZITHROMYCIN INJ 500 MG in SODIUM CHLORIDE 0.9% 250 ML IV SCH (15:26)
[2019-05-16] MEDS ORDERED: NITROGLYCERIN SL 0.4 MG TABLET SL PRN (17:38)
[2019-05-16] MEDS ORDERED: hydrALAZINE 20 MG/1 ML VIAL IV ONE (17:39)
[2019-05-16] MEDS: carvediloL 6.25 MG TABLET PO SCH (20:53)
[2019-05-16] MEDS: ATORVASTATIN 40 MG TABLET PO SCH (20:53)
[2019-05-16] MEDS: NORTRIPTYLINE 25 MG CAPSULE PO SCH (20:53)
[2019-05-16] MEDS: TAMSULOSIN 0.4 MG CAPSULE PO SCH (20:53)
[2019-05-16] MEDS: MEMANTINE 10 MG TABLET PO SCH (20:53)
[2019-05-16] MEDS: FLUTICASONE/SALMETEROL 500-50 DISKUS 14 DOSE INH SCH (21:53)
[2019-05-17 05:30] LABS: Basophils # 0.1 10*3/uL (0.0-0.2); Basophils % 0.6 % (0.0-0.8); Eosinophils # 0.4 10*3/uL (0.0-0.87); Eosinophils % 3.5 % (0.00-10.9); Hematocrit 35.5 VOL% (42.0-52.0); Immature Granulocytes % 0.5 %; Immature Granulocytes Absolute 0.06 #; Lymphocytes # 2.3 10*3/uL (1.4-4.0); Lymphocytes % 19.8 % (21.2-54.2); Mean Corpuscular Volume 92.2 FL (87-102); Mean Platelet Volume 10.7 FL (9.6-12.0); Monocytes % 7.5 % (1.7-12.7); Neutrophils % 68.1 % (38.7-73.9); Platelet Count 173 T/CUMM (130-400); Red Blood Count 3.85 MC/CUMM (3.8-5.5); Red Cell Distribution Width 15.3 % (9.3-17.3); White Blood Count 11.6 T/CUMM (4-12)
[2019-05-17 05:44] LABS: Albumin 2.4 G/DL (3.4-5.0); Bilirubin,Total 1.5 MG/DL (0.2-1.0); Calcium 8.4 MG/DL (8.5-10.1)
[2019-05-17] MEDS: SODIUM CHLORIDE 0.9% 1,000 ML IV SCH ×3 (05:44→20:17)
[2019-05-17] MEDS: ALBUTEROL 1.25 MG/3 ML NEB RESP TX SCH ×4 (07:21→18:30)
[2019-05-17] MEDS ORDERED: FLUTICASONE FUROATE BOTH NARES SCH (09:00)
[2019-05-17] MEDS ORDERED: MULTIVITAMIN (CENTRUM) TABLET PO SCH (09:00)
[2019-05-17] MEDS: cefTRIAXone 1,000 MG in SYRINGE 1 EACH IV SCH (09:01)
[2019-05-17] MEDS: ENOXAPARIN 40 MG/0.4 ML SYRINGE SUBCUT SCH (09:01)
[2019-05-17] MEDS: CYANOCOBALAMIN 500 MCG TABLET PO SCH (09:02)
[2019-05-17] MEDS: ASPIRIN EC 81 MG TABLET PO SCH (09:02)
[2019-05-17] MEDS: PANTOPRAZOLE 40 MG TABLET PO SCH (09:02)
[2019-05-17] MEDS: MULTIVITAMIN (CENTRUM) TABLET PO SCH (09:02)
[2019-05-17] MEDS: carvediloL 6.25 MG TABLET PO SCH ×2 (09:02→17:30)
[2019-05-17] MEDS: LOSARTAN 25 MG TABLET PO SCH (09:02)
[2019-05-17] MEDS: MEMANTINE 10 MG TABLET PO SCH ×2 (09:02→21:00)
[2019-05-17] MEDS: FLUTICASONE/SALMETEROL 500-50 DISKUS 14 DOSE INH SCH ×2 (09:03→21:00)
[2019-05-17] MEDS: AZITHROMYCIN INJ 500 MG in SODIUM CHLORIDE 0.9% 250 ML IV SCH (15:00)
[2019-05-17] MEDS: TAMSULOSIN 0.4 MG CAPSULE PO SCH (20:58)
[2019-05-17] MEDS: ATORVASTATIN 40 MG TABLET PO SCH (20:59)
[2019-05-17] MEDS: NORTRIPTYLINE 25 MG CAPSULE PO SCH (20:59)
[2019-05-17] MEDS: QUEtiapine 25 MG TABLET PO SCH (21:00)
[2019-05-18] MEDS: ALBUTEROL 1.25 MG/3 ML NEB RESP TX SCH ×4 (00:21→19:26)
[2019-05-18] MEDS: SODIUM CHLORIDE 0.9% 1,000 ML IV SCH ×4 (01:29→23:35)
[2019-05-18 05:08] LABS: Basophils # 0.1 10*3/uL (0.0-0.2); Basophils % 0.6 % (0.0-0.8); Eosinophils # 0.4 10*3/uL (0.0-0.87); Eosinophils % 4.4 % (0.00-10.9); Hematocrit 36.1 VOL% (42.0-52.0); Hemoglobin 11.5 GM/DL (14.0-18.0); Immature Granulocytes % 0.6 %; Immature Granulocytes Absolute 0.06 #; Lymphocytes # 1.9 10*3/uL (1.4-4.0); Lymphocytes % 19.4 % (21.2-54.2); Mean Corpuscular HGB Conc 31.9 GM/DL (32-36); Mean Platelet Volume 11.3 FL (9.6-12.0); Monocytes % 6.3 % (1.7-12.7); Neutrophils % 68.7 % (38.7-73.9); Platelet Count 178 T/CUMM (130-400); Red Blood Count 4.01 MC/CUMM (3.8-5.5); Red Cell Distribution Width 15.2 % (9.3-17.3); White Blood Count 9.8 T/CUMM (4-12)
[2019-05-18 05:13] LABS: Calcium 8.5 MG/DL (8.5-10.1)
[2019-05-18] MEDS: MAGNESIUM SULF RIDER 2 GM in PREMIX 1 EACH IV PRN (06:04)
[2019-05-18] MEDS: ASPIRIN EC 81 MG TABLET PO SCH (10:01)
[2019-05-18] MEDS: cefTRIAXone 1,000 MG in SYRINGE 1 EACH IV SCH (10:01)
[2019-05-18] MEDS: MULTIVITAMIN (CENTRUM) TABLET PO SCH (10:02)
[2019-05-18] MEDS: MEMANTINE 10 MG TABLET PO SCH ×2 (10:02→21:49)
[2019-05-18] MEDS: LOSARTAN 25 MG TABLET PO SCH (10:03)
[2019-05-18] MEDS: QUEtiapine 25 MG TABLET PO SCH ×2 (10:03→21:49)
[2019-05-18] MEDS: PANTOPRAZOLE 40 MG TABLET PO SCH (10:03)
[2019-05-18] MEDS: carvediloL 6.25 MG TABLET PO SCH ×2 (10:03→17:58)
[2019-05-18] MEDS: ENOXAPARIN 40 MG/0.4 ML SYRINGE SUBCUT SCH (10:03)
[2019-05-18] MEDS: FLUTICASONE/SALMETEROL 500-50 DISKUS 14 DOSE INH SCH ×2 (10:06→21:49)
[2019-05-18] MEDS: CYANOCOBALAMIN 500 MCG TABLET PO SCH (10:07)
[2019-05-18] MEDS: AZITHROMYCIN INJ 500 MG in SODIUM CHLORIDE 0.9% 250 ML IV SCH (15:58)
[2019-05-18] MEDS: ATORVASTATIN 40 MG TABLET PO SCH (21:49)
[2019-05-18] MEDS: NORTRIPTYLINE 25 MG CAPSULE PO SCH (21:49)
[2019-05-18] MEDS: TAMSULOSIN 0.4 MG CAPSULE PO SCH (21:49)
[2019-05-19] MEDS: ALBUTEROL 1.25 MG/3 ML NEB RESP TX SCH ×4 (00:39→20:57)
[2019-05-19] MEDS: SODIUM CHLORIDE 0.9% 1,000 ML IV SCH ×3 (01:05→17:41)
[2019-05-19] MEDS: PANTOPRAZOLE 40 MG TABLET PO SCH (09:30)
[2019-05-19] MEDS: ENOXAPARIN 40 MG/0.4 ML SYRINGE SUBCUT SCH (09:30)
[2019-05-19] MEDS: QUEtiapine 25 MG TABLET PO SCH ×2 (09:30→20:59)
[2019-05-19] MEDS: ASPIRIN EC 81 MG TABLET PO SCH (09:30)
[2019-05-19] MEDS: FLUTICASONE/SALMETEROL 500-50 DISKUS 14 DOSE INH SCH ×2 (09:31→21:03)
[2019-05-19] MEDS: MULTIVITAMIN (CENTRUM) TABLET PO SCH (09:31)
[2019-05-19] MEDS: CYANOCOBALAMIN 500 MCG TABLET PO SCH (09:31)
[2019-05-19] MEDS: MEMANTINE 10 MG TABLET PO SCH ×2 (09:31→21:05)
[2019-05-19] MEDS: LOSARTAN 25 MG TABLET PO SCH (09:31)
[2019-05-19] MEDS: cefTRIAXone 1,000 MG in SYRINGE 1 EACH IV SCH (09:32)
[2019-05-19] MEDS: carvediloL 6.25 MG TABLET PO SCH ×2 (09:34→17:40)
[2019-05-19] MEDS: AZITHROMYCIN INJ 500 MG in SODIUM CHLORIDE 0.9% 250 ML IV SCH (14:33)
[2019-05-19] MEDS ORDERED: hydrALAZINE 20 MG/1 ML VIAL IV PRN (20:43)
[2019-05-19] MEDS: ATORVASTATIN 40 MG TABLET PO SCH (21:00)
[2019-05-19] MEDS: NORTRIPTYLINE 25 MG CAPSULE PO SCH (21:00)
[2019-05-19] MEDS: TAMSULOSIN 0.4 MG CAPSULE PO SCH (21:00)
[2019-05-20] MEDS: ALBUTEROL 1.25 MG/3 ML NEB RESP TX SCH ×4 (01:44→12:31)
[2019-05-20] MEDS: SODIUM CHLORIDE 0.9% 1,000 ML IV SCH ×2 (02:12→07:40)
[2019-05-20 04:52] LABS: Basophils # 0.1 10*3/uL (0.0-0.2); Eosinophils # 0.6 10*3/uL (0.0-0.87); Eosinophils % 4.9 % (0.00-10.9); Hematocrit 41.6 VOL% (42.0-52.0); Hemoglobin 13.3 GM/DL (14.0-18.0); Immature Granulocytes % 0.7 %; Immature Granulocytes Absolute 0.09 #; Lymphocytes # 3.2 10*3/uL (1.4-4.0); Lymphocytes % 26.3 % (21.2-54.2); Mean Corpuscular Volume 89.3 FL (87-102); Mean Platelet Volume 11.3 FL (9.6-12.0); Monocytes % 6.5 % (1.7-12.7); Neutrophils % 60.6 % (38.7-73.9); Platelet Count 252 T/CUMM (130-400); Red Blood Count 4.66 MC/CUMM (3.8-5.5); Red Cell Distribution Width 15.3 % (9.3-17.3); White Blood Count 12.2 T/CUMM (4-12)
[2019-05-20 05:30] LABS: Calcium 9.1 MG/DL (8.5-10.1); Osmolality,Calculated 279.3 MOS/KG (273-304)
[2019-05-20] MEDS ORDERED: GLYCOPYRROLATE 0.4 MG/2 ML VIAL IM ONE (07:00)
[2019-05-20] MEDS ORDERED: PROMETHAZINE 25 MG/1 ML VIAL IM ONE (07:00)
[2019-05-20] MEDS ORDERED: MEPERIDINE 50 MG/1 ML VIAL IM ONE (07:00)
[2019-05-20] MEDS ORDERED: MIDAZOLAM 2 MG/2 ML VIAL ONE (07:10)
[2019-05-20] MEDS ORDERED: MIDAZOLAM 2 MG/2 ML VIAL IV ONE (07:30)
[2019-05-20] MEDS ORDERED: LIDOCAINE 2% VISCOUS 100 ML BOTTLE SWISH/SPIT ONE (07:30)
[2019-05-20] MEDS ORDERED: LIDOCAINE 1% 20 ML VIAL MISC INJ ONE (07:30)
[2019-05-20] MEDS ORDERED: LIDOCAINE 2% 20 ML VIAL RESP TX ONE (07:30)
[2019-05-20] MEDS: CYANOCOBALAMIN 500 MCG TABLET PO SCH (10:17)
[2019-05-20] MEDS: QUEtiapine 25 MG TABLET PO SCH (10:18)
[2019-05-20] MEDS: MULTIVITAMIN (CENTRUM) TABLET PO SCH (10:18)
[2019-05-20] MEDS: ASPIRIN EC 81 MG TABLET PO SCH (10:18)
[2019-05-20] MEDS: MEMANTINE 10 MG TABLET PO SCH (10:19)
[2019-05-20] MEDS: carvediloL 6.25 MG TABLET PO SCH (10:19)
[2019-05-20] MEDS: PANTOPRAZOLE 40 MG TABLET PO SCH (10:19)
[2019-05-20] MEDS: LOSARTAN 25 MG TABLET PO SCH (10:19)
[2019-05-20] MEDS: cefTRIAXone 1,000 MG in SYRINGE 1 EACH IV SCH (10:20)
[2019-05-20] MEDS: ENOXAPARIN 40 MG/0.4 ML SYRINGE SUBCUT SCH (10:21)
[2019-05-20] MEDS: FLUTICASONE/SALMETEROL 500-50 DISKUS 14 DOSE INH SCH (10:21)
[2019-05-20 12:14] VITALS: BP 159/81
== END 2019-05-20 13:50 | disposition home or self-care (01) | DRG 194 ==
LOC: EDBD → EDUNIT# → N.ED 12:33 → N.EDINP 15:22 → SUATTDRO 15:22 → N.5E 15:49
PROVIDERS: ATTEND Internal Medicine
PROC: BRONCHB (2019-05-20 07:35)

== ENCOUNTER 2019-07-03 07:13 | Inpatient (IN) ==
[2019-07-03] MEDS ORDERED: ONDANSETRON 4 MG/2 ML VIAL IV STA (07:37)
[2019-07-03 08:04] LABS: Basophils # 0.1 10*3/uL (0.0-0.2); Basophils % 0.5 % (0.0-0.8); Eosinophils # 0.1 10*3/uL (0.0-0.87); Eosinophils % 0.3 % (0.00-10.9); Hematocrit 40.7 VOL% (42.0-52.0); Hemoglobin 13.4 GM/DL (14.0-18.0); Immature Granulocytes % 0.8 %; Immature Granulocytes Absolute 0.18 #; Lymphocytes # 1.1 10*3/uL (1.4-4.0); Lymphocytes % 4.5 % (21.2-54.2); Mean Corpuscular HGB Conc 32.9 GM/DL (32-36); Mean Corpuscular Volume 87.5 FL (87-102); Mean Platelet Volume 9.7 FL (9.6-12.0); Monocytes % 5.4 % (1.7-12.7); Neutrophils % 88.5 % (38.7-73.9); Platelet Count 263 T/CUMM (130-400); Red Blood Count 4.65 MC/CUMM (3.8-5.5); Red Cell Distribution Width 14.9 % (9.3-17.3)
[2019-07-03 08:28] LABS: Alanine Aminotransferase 22 U/L (16-61); Albumin 3.3 G/DL (3.4-5.0); Alkaline Phosphatase 92 U/L (45-117); Aspartate Amino Transferase 18 U/L (0-37); Bilirubin,Total < 0.39 MG/DL (0.2-1.0); Blood Urea Nitrogen 13 MG/DL (7-18); Estimated Glom Filtration Rate 47 ML/MIN; Glucose 121 MG/DL (74-106); Osmolality,Calculated 279.4 MOS/KG (273-304); Total Protein 6.9 G/DL (6.4-8.3)
[2019-07-03 08:54] LABS: Apearance,Urine CLEAR (Clear); Bilirubin,Urine Negative (Negative); Blood, Urine Negative (Negative); Glucose,Urine (UA) Negative (Negative); Ketones,Urine Negative (Negative); Mucus,Urine Occasional /LPF (Occasional); Nitrite,Urine Negative (Negative); Protein,Urine 30 MG/DL; RBC,Urine 2 /HPF (0-4); Urine Color Yellow (Yellow); Urine Specific Gravity 1.014 (1.001-1.035); Urine Urobilinogen < 2.0 EU/DL (0.2-1.0); WBC,Urine 1 /HPF (0-6)
[2019-07-03] MEDS ORDERED: cefTRIAXone 1,000 MG in SODIUM CHLORIDE 0.9% 100 ML IV STA (09:05)
[2019-07-03 09:20] LABS: Band Neutrophils 2 % (0-10); Lymphocytes 4 % (20-55); Microcytosis 1+; Segmented Neutrophils 85 % (50-85); Total Cells Counted 100
[2019-07-03 09:21] LABS: Platelet Estimate Normal; Polychromasia Slight; Spherocytes 1+
[2019-07-03] MEDS ORDERED: ACETAMINOPHEN 325 MG TABLET PO PRN (10:28)
[2019-07-03] MEDS ORDERED: ONDANSETRON 4 MG/2 ML VIAL IV PRN (10:28)
[2019-07-03 11:03] LABS: Risk Ratio 5.56; Thyroid Stimulating Hormone 2.35 uIU/ml (0.358-3.74); VLDL CHOLESTEROL 26.8 MG/DL
[2019-07-03] MEDS ORDERED: ALBUTEROL 2.5 MG/3 ML NEB RESP TX PRN (11:33)
[2019-07-03] MEDS: SODIUM CHLORIDE 0.9% 1,000 ML IV SCH (13:43)
[2019-07-03] MEDS ORDERED: NITROGLYCERIN SL 0.4 MG TABLET SL PRN (13:43)
[2019-07-03] MEDS ORDERED: LACTULOSE 20 GM/30 ML UDCUP PO PRN (13:48)
[2019-07-03] MEDS: ALBUTEROL/IPRATROPIUM 3 ML NEB RESP TX SCH ×2 (14:19→20:35)
[2019-07-03] MEDS ORDERED: MAGNESIUM CITRATE 300 ML BOTTLE PO ONE (15:18)
[2019-07-03] MEDS: BENZONATATE 100 MG CAPSULE PO SCH ×2 (15:38→20:55)
[2019-07-03] MEDS: AZITHROMYCIN INJ 500 MG in SODIUM CHLORIDE 0.9% 250 ML IV SCH (15:38)
[2019-07-03] MEDS: DOCUSATE SODIUM 100 MG CAPSULE PO SCH (20:22)
[2019-07-03] MEDS: ATORVASTATIN 40 MG TABLET PO SCH (20:22)
[2019-07-03] MEDS: NORTRIPTYLINE 25 MG CAPSULE PO SCH (20:22)
[2019-07-03] MEDS: TAMSULOSIN 0.4 MG CAPSULE PO SCH (20:22)
[2019-07-03] MEDS: POLYETHYLENE GLYCOL POWDER 17 GM PACK PO SCH (20:23)
[2019-07-03] MEDS: QUEtiapine 25 MG TABLET PO SCH (20:23)
[2019-07-03] MEDS: ENOXAPARIN 40 MG/0.4 ML SYRINGE SUBCUT SCH (20:23)
[2019-07-03] MEDS: PANTOPRAZOLE 40 MG TABLET PO SCH (20:23)
[2019-07-03] MEDS: carvediloL 6.25 MG TABLET PO SCH (20:23)
[2019-07-03] MEDS: MEMANTINE 10 MG TABLET PO SCH (20:53)
[2019-07-04] MEDS: ALBUTEROL/IPRATROPIUM 3 ML NEB RESP TX SCH ×4 (00:56→18:56)
[2019-07-04 06:05] LABS: Basophils # 0.1 10*3/uL (0.0-0.2); Basophils % 0.9 % (0.0-0.8); Eosinophils # 0.5 10*3/uL (0.0-0.87); Eosinophils % 3.4 % (0.00-10.9); Hematocrit 35.2 VOL% (42.0-52.0); Immature Granulocytes % 0.5 %; Immature Granulocytes Absolute 0.07 #; Lymphocytes # 2.3 10*3/uL (1.4-4.0); Lymphocytes % 15.3 % (21.2-54.2); Mean Corpuscular HGB Conc 31.3 GM/DL (32-36); Mean Corpuscular Volume 90.3 FL (87-102); Mean Platelet Volume 9.7 FL (9.6-12.0); Monocytes % 7.1 % (1.7-12.7); Neutrophils % 72.8 % (38.7-73.9); Platelet Count 214 T/CUMM (130-400); Red Cell Distribution Width 15.4 % (9.3-17.3); White Blood Count 14.8 T/CUMM (4-12)
[2019-07-04 06:25] LABS: Calcium 8.4 MG/DL (8.5-10.1); Osmolality,Calculated 277.5 MOS/KG (273-304)
[2019-07-04 06:44] LABS: Hypochromasia 1+; Microcytosis 1+; Platelet Estimate Adequate
[2019-07-04] MEDS: MULTIVITAMIN (CENTRUM) TABLET PO SCH (09:20)
[2019-07-04] MEDS: DOCUSATE SODIUM 100 MG CAPSULE PO SCH ×2 (09:20→20:17)
[2019-07-04] MEDS: POLYETHYLENE GLYCOL POWDER 17 GM PACK PO SCH ×2 (09:20→20:20)
[2019-07-04] MEDS: ASPIRIN EC 81 MG TABLET PO SCH (09:20)
[2019-07-04] MEDS: carvediloL 6.25 MG TABLET PO SCH ×2 (09:21→20:17)
[2019-07-04] MEDS: CYANOCOBALAMIN 500 MCG TABLET PO SCH (09:21)
[2019-07-04] MEDS: QUEtiapine 25 MG TABLET PO SCH ×2 (09:21→20:18)
[2019-07-04] MEDS: BENZONATATE 100 MG CAPSULE PO SCH ×3 (09:22→20:18)
[2019-07-04] MEDS: LINACLOTIDE 145 MCG CAPSULE PO SCH (09:24)
[2019-07-04] MEDS: MEMANTINE 10 MG TABLET PO SCH ×2 (09:24→20:18)
[2019-07-04] MEDS: LOSARTAN 25 MG TABLET PO SCH (09:24)
[2019-07-04] MEDS: cefTRIAXone 1,000 MG in SYRINGE 1 EACH IV SCH (09:25)
[2019-07-04] MEDS: FLUTICASONE FUROATE BOTH NARES SCH (09:32)
[2019-07-04] MEDS: SODIUM CHLORIDE 0.9% 1,000 ML IV SCH ×2 (09:33→14:59)
[2019-07-04] MEDS: AZITHROMYCIN INJ 500 MG in SODIUM CHLORIDE 0.9% 250 ML IV SCH (13:20)
[2019-07-04 16:13] LABS: Apearance,Urine CLEAR (Clear); Bilirubin,Urine Negative (Negative); Blood, Urine Negative (Negative); Glucose,Urine (UA) Negative (Negative); Ketones,Urine Negative (Negative); Nitrite,Urine Negative (Negative); Protein,Urine Negative; RBC,Urine 1 /HPF (0-4); Urine Color Straw (Yellow); Urine Specific Gravity 1.005 (1.001-1.035); Urine Urobilinogen < 2.0 EU/DL (0.2-1.0); WBC,Urine <1 /HPF (0-6)
[2019-07-04] MEDS: PANTOPRAZOLE 40 MG TABLET PO SCH (18:12)
[2019-07-04] MEDS: ATORVASTATIN 40 MG TABLET PO SCH (18:12)
[2019-07-04] MEDS: TAMSULOSIN 0.4 MG CAPSULE PO SCH (18:12)
[2019-07-04] MEDS: NORTRIPTYLINE 25 MG CAPSULE PO SCH (20:17)
[2019-07-04] MEDS: ENOXAPARIN 40 MG/0.4 ML SYRINGE SUBCUT SCH (20:20)
[2019-07-05] MEDS: ALBUTEROL/IPRATROPIUM 3 ML NEB RESP TX SCH ×3 (01:17→13:25)
[2019-07-05 04:47] LABS: Basophils # 0.1 10*3/uL (0.0-0.2); Basophils % 1.1 % (0.0-0.8); Eosinophils # 0.7 10*3/uL (0.0-0.87); Eosinophils % 6.9 % (0.00-10.9); Hematocrit 33.5 VOL% (42.0-52.0); Hemoglobin 10.6 GM/DL (14.0-18.0); Immature Granulocytes % 0.6 %; Immature Granulocytes Absolute 0.06 #; Lymphocytes # 1.9 10*3/uL (1.4-4.0); Lymphocytes % 19.6 % (21.2-54.2); Mean Corpuscular HGB Conc 31.6 GM/DL (32-36); Mean Corpuscular Volume 89.6 FL (87-102); Mean Platelet Volume 10.2 FL (9.6-12.0); Monocytes % 9.7 % (1.7-12.7); Neutrophils % 62.1 % (38.7-73.9); Platelet Count 205 T/CUMM (130-400); Red Blood Count 3.74 MC/CUMM (3.8-5.5); Red Cell Distribution Width 15.1 % (9.3-17.3); White Blood Count 9.9 T/CUMM (4-12)
[2019-07-05 05:17] LABS: Calcium 8.1 MG/DL (8.5-10.1); Osmolality,Calculated 277.4 MOS/KG (273-304)
[2019-07-05] MEDS ORDERED: AZITHROMYCIN 250 MG TABLET PO SCH (09:00)
[2019-07-05] MEDS: DOCUSATE SODIUM 100 MG CAPSULE PO SCH (09:00)
[2019-07-05] MEDS: MULTIVITAMIN (CENTRUM) TABLET PO SCH (09:02)
[2019-07-05] MEDS: CYANOCOBALAMIN 500 MCG TABLET PO SCH (09:02)
[2019-07-05] MEDS: ASPIRIN EC 81 MG TABLET PO SCH (09:02)
[2019-07-05] MEDS: QUEtiapine 25 MG TABLET PO SCH (09:02)
[2019-07-05] MEDS: carvediloL 6.25 MG TABLET PO SCH (09:02)
[2019-07-05] MEDS: MEMANTINE 10 MG TABLET PO SCH (09:02)
[2019-07-05] MEDS: BENZONATATE 100 MG CAPSULE PO SCH ×2 (09:03→14:58)
[2019-07-05] MEDS: LINACLOTIDE 145 MCG CAPSULE PO SCH (09:03)
[2019-07-05] MEDS: LOSARTAN 25 MG TABLET PO SCH (09:03)
[2019-07-05] MEDS: cefTRIAXone 1,000 MG in SYRINGE 1 EACH IV SCH (09:04)
[2019-07-05] MEDS: FLUTICASONE FUROATE BOTH NARES SCH (09:04)
[2019-07-05] MEDS: POLYETHYLENE GLYCOL POWDER 17 GM PACK PO SCH (09:04)
[2019-07-05 12:26] VITALS: BP 128/71
[2019-07-05] MEDS: SODIUM CHLORIDE 0.9% 1,000 ML IV SCH (16:08)
== END 2019-07-05 17:07 | disposition home health service (06) | DRG 194 ==
LOC: EDBD → EDUNIT# → N.ED 07:13 → N.EDINP 07:13 → SUATTDRO 10:28 → N.EDINP 12:11 → N.4E 12:43
PROVIDERS: ADMIT Hospitalist; ATTEND Internal Medicine

== ENCOUNTER 2019-08-21 07:14 | Inpatient (IN) ==
[2019-08-21 08:11] LABS: Basophils # 0.1 10*3/uL (0.0-0.2); Basophils % 0.4 % (0.0-0.8); Eosinophils % 0.2 % (0.00-10.9); Hematocrit 41.3 VOL% (42.0-52.0); Immature Granulocytes % 0.5 %; Lymphocytes # 1.3 10*3/uL (1.4-4.0); Lymphocytes % 6.9 % (21.2-54.2); Mean Corpuscular HGB Conc 31.5 GM/DL (32-36); Mean Corpuscular Volume 91.6 FL (87-102); Mean Platelet Volume 9.9 FL (9.6-12.0); Monocytes % 6.5 % (1.7-12.7); Neutrophils % 85.5 % (38.7-73.9); Platelet Count 175 T/CUMM (130-400); Red Blood Count 4.51 MC/CUMM (3.8-5.5); Red Cell Distribution Width 17.1 % (9.3-17.3); White Blood Count 18.3 T/CUMM (4-12)
[2019-08-21 08:33] LABS: Albumin 2.7 G/DL (3.4-5.0); Bilirubin,Total 0.6 MG/DL (0.2-1.0); Calcium 8.6 MG/DL (8.5-10.1); Osmolality,Calculated 275.8 MOS/KG (273-304); Total Protein 6.3 G/DL (6.4-8.3)
[2019-08-21 08:34] LABS: Band Neutrophils 7 % (0-10); Eosinophils 1 % (0-10); Hypochromasia Slight; Lymphocytes 6 % (20-55); Platelet Estimate Adequate; Segmented Neutrophils 81 % (50-85); Total Cells Counted 100
[2019-08-21 09:12] LABS: Apearance,Urine CLEAR (Clear); Bilirubin,Urine Negative (Negative); Blood, Urine Negative (Negative); Glucose,Urine (UA) Negative (Negative); Hyaline Casts,Urine 3 /LPF (0-3); Ketones,Urine Negative (Negative); Mucus,Urine Occasional /LPF (Occasional); Nitrite,Urine Negative (Negative); Protein,Urine Negative; RBC,Urine 3 /HPF (0-4); Urine Color Yellow (Yellow); Urine Specific Gravity 1.011 (1.001-1.035); Urine Urobilinogen < 2.0 EU/DL (0.2-1.0); WBC,Urine 1 /HPF (0-6)
[2019-08-21] MEDS ORDERED: PIPERACILLIN/TAZOBACTAM 4,500 MG in SODIUM CHLORIDE 0.9% 100 ML IV STA ×2 (09:39→09:40)
[2019-08-21] MEDS ORDERED: PIPERACILLIN/TAZOBACTAM 4,500 MG VIAL IV ONE (09:40)
[2019-08-21] MEDS ORDERED: PROCHLORPERAZINE 10 MG TABLET PO PRN (11:03)
[2019-08-21] MEDS ORDERED: NITROGLYCERIN SL 0.4 MG TABLET SL PRN (11:03)
[2019-08-21] MEDS: SODIUM CHLORIDE 0.9% 1,000 ML IV SCH (13:20)
[2019-08-21] MEDS: predniSONE 20 MG TABLET PO SCH ×2 (13:21→20:55)
[2019-08-21] MEDS: ALBUTEROL/IPRATROPIUM 3 ML NEB RESP TX SCH ×2 (14:13→20:22)
[2019-08-21] MEDS: PIPERACILLIN/TAZOBACTAM 3,375 MG in SODIUM CHLORIDE 0.9% 100 ML IV SCH (17:45)
[2019-08-21] MEDS: FLUTICASONE/SALMETEROL 500-50 DISKUS 14 DOSE INH SCH (20:25)
[2019-08-21] MEDS: carvediloL 6.25 MG TABLET PO SCH (20:54)
[2019-08-21] MEDS: ENOXAPARIN 30 MG/0.3 ML SYRINGE SUBCUT SCH (20:54)
[2019-08-21] MEDS: MEMANTINE 10 MG TABLET PO SCH (20:54)
[2019-08-21] MEDS: NORTRIPTYLINE 25 MG CAPSULE PO SCH (20:54)
[2019-08-21] MEDS: DOCUSATE SODIUM 100 MG CAPSULE PO SCH (20:55)
[2019-08-21] MEDS: ACETAMINOPHEN 325 MG TABLET PO PRN (20:55)
[2019-08-21] MEDS: QUEtiapine 25 MG TABLET PO SCH (20:55)
[2019-08-21] MEDS: TAMSULOSIN 0.4 MG CAPSULE PO SCH (20:55)
[2019-08-21] MEDS: ATORVASTATIN 40 MG TABLET PO SCH (20:55)
[2019-08-22] MEDS: ALBUTEROL/IPRATROPIUM 3 ML NEB RESP TX SCH ×4 (00:58→19:55)
[2019-08-22] MEDS: SODIUM CHLORIDE 0.9% 1,000 ML IV SCH ×2 (02:26→10:14)
[2019-08-22] MEDS: PIPERACILLIN/TAZOBACTAM 3,375 MG in SODIUM CHLORIDE 0.9% 100 ML IV SCH ×3 (02:27→17:54)
[2019-08-22 05:51] LABS: Basophils % 0.2 % (0.0-0.8); Hematocrit 34.2 VOL% (42.0-52.0); Hemoglobin 11.2 GM/DL (14.0-18.0); Immature Granulocytes % 0.6 %; Immature Granulocytes Absolute 0.09 #; Lymphocytes # 1.1 10*3/uL (1.4-4.0); Lymphocytes % 6.8 % (21.2-54.2); Mean Corpuscular HGB Conc 32.7 GM/DL (32-36); Mean Corpuscular Volume 89.3 FL (87-102); Mean Platelet Volume 10.8 FL (9.6-12.0); Monocytes % 0.7 % (1.7-12.7); Neutrophils % 91.7 % (38.7-73.9); Platelet Count 150 T/CUMM (130-400); Red Blood Count 3.83 MC/CUMM (3.8-5.5); Red Cell Distribution Width 17.2 % (9.3-17.3); White Blood Count 16.4 T/CUMM (4-12)
[2019-08-22 06:16] LABS: Calcium 8.4 MG/DL (8.5-10.1)
[2019-08-22 06:32] LABS: Band Neutrophils 2 % (0-10); Lymphocytes 6 % (20-55); Platelet Estimate Decreased; Polychromasia Few; Segmented Neutrophils 92 % (50-85); Total Cells Counted 100
[2019-08-22] MEDS: FLUTICASONE/SALMETEROL 500-50 DISKUS 14 DOSE INH SCH ×2 (08:59→20:46)
[2019-08-22] MEDS: PANTOPRAZOLE 40 MG TABLET PO SCH (08:59)
[2019-08-22] MEDS: ASPIRIN EC 81 MG TABLET PO SCH (08:59)
[2019-08-22] MEDS: MULTIVITAMIN (CENTRUM) TABLET PO SCH (08:59)
[2019-08-22] MEDS: LOSARTAN 25 MG TABLET PO SCH (09:00)
[2019-08-22] MEDS: QUEtiapine 25 MG TABLET PO SCH ×2 (09:00→20:40)
[2019-08-22] MEDS: DOCUSATE SODIUM 100 MG CAPSULE PO SCH ×2 (09:00→20:40)
[2019-08-22] MEDS: carvediloL 6.25 MG TABLET PO SCH ×2 (09:00→20:40)
[2019-08-22] MEDS: MEMANTINE 10 MG TABLET PO SCH ×2 (09:00→20:40)
[2019-08-22] MEDS: predniSONE 20 MG TABLET PO SCH ×2 (09:00→20:40)
[2019-08-22] MEDS ORDERED: NON-FORMULARY MEDICATION (Tiotropium Bromide [Spiriva With Handihaler] 1 CAPSULE) INH SCH (09:00)
[2019-08-22] MEDS: ACETAMINOPHEN 325 MG TABLET PO PRN (09:13)
[2019-08-22] MEDS: ENOXAPARIN 30 MG/0.3 ML SYRINGE SUBCUT SCH (20:39)
[2019-08-22] MEDS: TAMSULOSIN 0.4 MG CAPSULE PO SCH (20:40)
[2019-08-22] MEDS: ATORVASTATIN 40 MG TABLET PO SCH (20:40)
[2019-08-22] MEDS: NORTRIPTYLINE 25 MG CAPSULE PO SCH (20:40)
[2019-08-23] MEDS: ALBUTEROL/IPRATROPIUM 3 ML NEB RESP TX SCH ×4 (00:25→21:15)
[2019-08-23] MEDS: PIPERACILLIN/TAZOBACTAM 3,375 MG in SODIUM CHLORIDE 0.9% 100 ML IV SCH ×3 (02:28→17:48)
[2019-08-23 05:41] LABS: Basophils % 0.1 % (0.0-0.8); Hematocrit 34.3 VOL% (42.0-52.0); Hemoglobin 11.3 GM/DL (14.0-18.0); Immature Granulocytes % 1.1 %; Immature Granulocytes Absolute 0.18 #; Lymphocytes # 1.3 10*3/uL (1.4-4.0); Lymphocytes % 7.3 % (21.2-54.2); Mean Corpuscular HGB Conc 32.9 GM/DL (32-36); Mean Corpuscular Volume 88.9 FL (87-102); Mean Platelet Volume 10.6 FL (9.6-12.0); Monocytes % 2.9 % (1.7-12.7); Neutrophils % 88.6 % (38.7-73.9); Platelet Count 172 T/CUMM (130-400); Red Blood Count 3.86 MC/CUMM (3.8-5.5); Red Cell Distribution Width 17.4 % (9.3-17.3); White Blood Count 17.1 T/CUMM (4-12)
[2019-08-23 06:05] LABS: Calcium 8.9 MG/DL (8.5-10.1); Osmolality,Calculated 287.3 MOS/KG (273-304)
[2019-08-23] MEDS: QUEtiapine 25 MG TABLET PO SCH ×2 (09:30→20:33)
[2019-08-23] MEDS: DOCUSATE SODIUM 100 MG CAPSULE PO SCH ×2 (09:31→20:33)
[2019-08-23] MEDS: MULTIVITAMIN (CENTRUM) TABLET PO SCH (09:31)
[2019-08-23] MEDS: LOSARTAN 25 MG TABLET PO SCH (09:31)
[2019-08-23] MEDS: ASPIRIN EC 81 MG TABLET PO SCH (09:31)
[2019-08-23] MEDS: predniSONE 20 MG TABLET PO SCH (09:31)
[2019-08-23] MEDS: carvediloL 6.25 MG TABLET PO SCH ×2 (09:31→20:33)
[2019-08-23] MEDS: MEMANTINE 10 MG TABLET PO SCH ×2 (09:31→20:33)
[2019-08-23] MEDS: PANTOPRAZOLE 40 MG TABLET PO SCH (09:32)
[2019-08-23] MEDS: FLUTICASONE/SALMETEROL 500-50 DISKUS 14 DOSE INH SCH ×2 (09:42→20:36)
[2019-08-23] MEDS: NORTRIPTYLINE 25 MG CAPSULE PO SCH (20:33)
[2019-08-23] MEDS: TAMSULOSIN 0.4 MG CAPSULE PO SCH (20:33)
[2019-08-23] MEDS: ATORVASTATIN 40 MG TABLET PO SCH (20:34)
[2019-08-23] MEDS: ENOXAPARIN 30 MG/0.3 ML SYRINGE SUBCUT SCH (20:37)
[2019-08-24] MEDS: ALBUTEROL/IPRATROPIUM 3 ML NEB RESP TX SCH ×2 (00:15→07:35)
[2019-08-24] MEDS: PIPERACILLIN/TAZOBACTAM 3,375 MG in SODIUM CHLORIDE 0.9% 100 ML IV SCH (01:34)
[2019-08-24 05:17] LABS: Basophils % 0.1 % (0.0-0.8); Hemoglobin 11.1 GM/DL (14.0-18.0); Immature Granulocytes % 1.2 %; Immature Granulocytes Absolute 0.17 #; Lymphocytes # 1.7 10*3/uL (1.4-4.0); Lymphocytes % 12.1 % (21.2-54.2); Mean Corpuscular HGB Conc 32.6 GM/DL (32-36); Mean Corpuscular Volume 89.9 FL (87-102); Mean Platelet Volume 10.9 FL (9.6-12.0); Monocytes % 5.5 % (1.7-12.7); Neutrophils % 81.1 % (38.7-73.9); Platelet Count 170 T/CUMM (130-400); Red Blood Count 3.78 MC/CUMM (3.8-5.5); Red Cell Distribution Width 17.5 % (9.3-17.3); White Blood Count 14.4 T/CUMM (4-12)
[2019-08-24 05:44] LABS: Calcium 8.4 MG/DL (8.5-10.1); Osmolality,Calculated 292.6 MOS/KG (273-304)
[2019-08-24] MEDS: FLUTICASONE/SALMETEROL 500-50 DISKUS 14 DOSE INH SCH (08:49)
[2019-08-24] MEDS: DOCUSATE SODIUM 100 MG CAPSULE PO SCH (08:49)
[2019-08-24] MEDS: ASPIRIN EC 81 MG TABLET PO SCH (08:50)
[2019-08-24] MEDS: PANTOPRAZOLE 40 MG TABLET PO SCH (08:50)
[2019-08-24] MEDS: QUEtiapine 25 MG TABLET PO SCH (08:50)
[2019-08-24] MEDS: MEMANTINE 10 MG TABLET PO SCH (08:50)
[2019-08-24] MEDS: carvediloL 6.25 MG TABLET PO SCH (08:51)
[2019-08-24] MEDS: MULTIVITAMIN (CENTRUM) TABLET PO SCH (08:51)
[2019-08-24] MEDS: LOSARTAN 25 MG TABLET PO SCH (08:51)
[2019-08-24] MEDS ORDERED: predniSONE 20 MG TABLET PO SCH (09:00)
[2019-08-24 12:34] VITALS: BP 164/89
== END 2019-08-24 13:00 | disposition home health service (06) | DRG 194 ==
LOC: EDUNIT# → N.ED 07:14 → SUATTDRO 10:44 → N.EDINP 10:44 → N.4E 11:14
PROVIDERS: ADMIT Internal Medicine; ATTEND Internal Medicine

== ENCOUNTER 2019-10-06 03:24 | Inpatient (IN) ==
[2019-10-06] MEDS ORDERED: SODIUM CHLORIDE 0.9% 500 ML IV STA (03:41)
[2019-10-06] MEDS ORDERED: methylPREDNISolone SOD SUC 125 MG/2 ML VIAL IV STA (03:41)
[2019-10-06] MEDS ORDERED: ALBUTEROL NEB SOLN 5 MG/ML 20 ML/BOTTLE ONE (03:46)
[2019-10-06 03:51] LABS: Basophils # 0.1 10*3/uL (0.0-0.2); Basophils % 0.3 % (0.0-0.8); Eosinophils # 0.3 10*3/uL (0.0-0.87); Eosinophils % 2.1 % (0.00-10.9); Hematocrit 41.3 VOL% (42.0-52.0); Hemoglobin 12.6 GM/DL (14.0-18.0); Immature Granulocytes % 0.4 %; Immature Granulocytes Absolute 0.07 #; Lymphocytes # 1.6 10*3/uL (1.4-4.0); Lymphocytes % 10.4 % (21.2-54.2); Mean Corpuscular HGB Conc 30.5 GM/DL (32-36); Mean Corpuscular Volume 94.3 FL (87-102); Mean Platelet Volume 10.2 FL (9.6-12.0); Monocytes % 1.3 % (1.7-12.7); Neutrophils % 85.5 % (38.7-73.9); Platelet Count 317 T/CUMM (130-400); Red Blood Count 4.38 MC/CUMM (3.8-5.5); Red Cell Distribution Width 16.9 % (9.3-17.3); White Blood Count 15.6 T/CUMM (4-12)
[2019-10-06 03:59] LABS: PT Patient Result 10.7 SECS (9.6-12.2)
[2019-10-06 04:00] LABS: Allen Test Positive
[2019-10-06] MEDS ORDERED: ALBUTEROL NEB SOLN 5 MG/ML 20 ML/BOTTLE RESP TX SCH (04:00)
[2019-10-06 04:01] LABS: ABG HCO3 18.5 MMOL/L (20-26); ABG Oxygen Saturation 82.3 % (95-100); ABG PCO2 35.5 MM HG (35-48); ABG PH 7.323 (7.35-7.45); ABG PO2 51.5 MM HG (80-95); ABG TCO2 16.5 MMOL/L (23-27)
[2019-10-06] MEDS ORDERED: PIPERACILLIN/TAZOBACTAM 3,375 MG in SODIUM CHLORIDE 0.9% 100 ML IV STA (04:24)
[2019-10-06 04:31] LABS: Alanine Aminotransferase 16 U/L (16-61); Albumin 2.7 G/DL (3.4-5.0); Alkaline Phosphatase 140 U/L (45-117); Aspartate Amino Transferase 32 U/L (0-37); Blood Urea Nitrogen 17 MG/DL (7-18); Calcium 8.5 MG/DL (8.5-10.1); Estimated Glom Filtration Rate 39 ML/MIN; Glucose 117 MG/DL (74-106); Osmolality,Calculated 270.2 MOS/KG (273-304); Total Protein 7.5 G/DL (6.4-8.3)
[2019-10-06] MEDS ORDERED: SODIUM CHLORIDE 0.9% 2,250 ML IV ONE (04:37)
[2019-10-06 04:58] LABS: Apearance,Urine CLEAR (Clear); Bacteria,Urine Occasional /HPF (Few); Bilirubin,Urine Negative (Negative); Blood, Urine Negative (Negative); Glucose,Urine (UA) Negative (Negative); Ketones,Urine Negative (Negative); Mucus,Urine Occasional /LPF (Occasional); Nitrite,Urine Negative (Negative); Protein,Urine Negative; RBC,Urine 1 /HPF (0-4); Squamous Epithelial Cell,Urine Occasional /HPF (0-10); Urine Color Yellow (Yellow); Urine Urobilinogen < 2.0 EU/DL (0.2-1.0); WBC,Urine <1 /HPF (0-6)
[2019-10-06] MEDS ORDERED: ONDANSETRON 4 MG/2 ML VIAL IV PRN (05:27)
[2019-10-06] MEDS ORDERED: ALBUTEROL 2.5 MG/3 ML NEB RESP TX PRN (05:27)
[2019-10-06] MEDS ORDERED: ACETAMINOPHEN 325 MG TABLET PO PRN (05:27)
[2019-10-06 05:45] LABS: Barbiturates Screen,Urine Negative (Negative); Benzodiazepines Screen,Urine Negative (Negative); Cannabinoid Screen,Urine Negative (Negative); Opiate Screen,Urine Positive (Negative); Phencyclidine Screen,Urine Negative (Negative)
[2019-10-06] MEDS: LACTULOSE 20 GM/30 ML UDCUP PO SCH ×3 (06:57→18:27)
[2019-10-06] MEDS: SODIUM CHLORIDE 0.9% 1,000 ML IV SCH ×2 (07:04→15:17)
[2019-10-06] MEDS: ALBUTEROL/IPRATROPIUM 3 ML NEB RESP TX SCH ×3 (07:11→19:22)
[2019-10-06] MEDS: MULTIVITAMIN (CENTRUM) TABLET PO SCH (08:26)
[2019-10-06] MEDS: MEMANTINE 10 MG TABLET PO SCH ×2 (08:26→20:41)
[2019-10-06] MEDS: ASPIRIN EC 81 MG TABLET PO SCH (08:26)
[2019-10-06] MEDS: carvediloL 6.25 MG TABLET PO SCH ×2 (08:26→16:47)
[2019-10-06] MEDS: QUEtiapine 25 MG TABLET PO SCH ×2 (08:27→20:40)
[2019-10-06] MEDS: DONEPEZIL 10 MG TABLET PO SCH ×2 (08:27→20:40)
[2019-10-06] MEDS: PANTOPRAZOLE 40 MG TABLET PO SCH (08:27)
[2019-10-06] MEDS: ENOXAPARIN 40 MG/0.4 ML SYRINGE SUBCUT SCH (08:28)
[2019-10-06] MEDS: LOSARTAN 25 MG TABLET PO SCH (08:29)
[2019-10-06] MEDS: FLUTICASONE/SALMETEROL 500-50 DISKUS 14 DOSE INH SCH ×2 (08:31→20:42)
[2019-10-06] MEDS ORDERED: PANTOPRAZOLE 40 MG TABLET PO SCH (09:00)
[2019-10-06] MEDS: methylPREDNISolone SOD SUC 40 MG/1 ML VIAL IV SCH ×2 (10:34→16:47)
[2019-10-06] MEDS: PIPERACILLIN/TAZOBACTAM 3,375 MG in SODIUM CHLORIDE 0.9% 100 ML IV SCH ×2 (11:29→20:38)
[2019-10-06] MEDS: TAMSULOSIN 0.4 MG CAPSULE PO SCH (19:02)
[2019-10-06] MEDS: ATORVASTATIN 40 MG TABLET PO SCH (19:02)
[2019-10-06] MEDS: NORTRIPTYLINE 25 MG CAPSULE PO SCH (20:41)
[2019-10-07] MEDS: SODIUM CHLORIDE 0.9% 1,000 ML IV SCH ×2 (00:16→08:44)
[2019-10-07] MEDS: methylPREDNISolone SOD SUC 40 MG/1 ML VIAL IV SCH ×3 (00:46→15:25)
[2019-10-07] MEDS: LACTULOSE 20 GM/30 ML UDCUP PO SCH ×2 (00:46→06:33)
[2019-10-07] MEDS: ALBUTEROL/IPRATROPIUM 3 ML NEB RESP TX SCH ×4 (01:44→20:15)
[2019-10-07 03:16] LABS: ABG Base Excess -5.1 MMOL/L (-2.5-2.5); ABG HCO3 20.1 MMOL/L (20-26); ABG Oxygen Saturation 92.9 % (95-100); ABG PCO2 39.4 MM HG (35-48); ABG PH 7.324 (7.35-7.45); ABG PO2 65.6 MM HG (80-95); Allen Test Positive; Pt O2 Delivery Device Other
[2019-10-07] MEDS: PIPERACILLIN/TAZOBACTAM 3,375 MG in SODIUM CHLORIDE 0.9% 100 ML IV SCH ×3 (05:16→21:32)
[2019-10-07 05:49] LABS: Basophils % 0.1 % (0.0-0.8); Immature Granulocytes % 1.9 %; Immature Granulocytes Absolute 0.35 #; Lymphocytes # 0.5 10*3/uL (1.4-4.0); Lymphocytes % 2.7 % (21.2-54.2); Mean Corpuscular HGB Conc 30.3 GM/DL (32-36); Mean Corpuscular Volume 96.2 FL (87-102); Mean Platelet Volume 10.7 FL (9.6-12.0); Monocytes % 0.6 % (1.7-12.7); Neutrophils % 94.7 % (38.7-73.9); Platelet Count 158 T/CUMM (130-400); Red Blood Count 3.43 MC/CUMM (3.8-5.5); Red Cell Distribution Width 16.9 % (9.3-17.3); White Blood Count 18.4 T/CUMM (4-12)
[2019-10-07 06:21] LABS: Albumin 2.2 G/DL (3.4-5.0); Bilirubin,Total 0.7 MG/DL (0.2-1.0); Calcium 8.1 MG/DL (8.5-10.1); Osmolality,Calculated 282.4 MOS/KG (273-304); Total Protein 6.1 G/DL (6.4-8.3)
[2019-10-07 06:40] LABS: Band Neutrophils 4 % (0-10); Lymphocytes 2 % (20-55); Macrocytosis Slight; Metamyelocytes 3 %; Myelocytes 1 %; Segmented Neutrophils 88 % (50-85); Total Cells Counted 100
[2019-10-07 06:41] LABS: Platelet Estimate Adequate
[2019-10-07] MEDS: ENOXAPARIN 40 MG/0.4 ML SYRINGE SUBCUT SCH (08:11)
[2019-10-07] MEDS: LOSARTAN 25 MG TABLET PO SCH (08:13)
[2019-10-07] MEDS: ASPIRIN EC 81 MG TABLET PO SCH (08:13)
[2019-10-07] MEDS: PANTOPRAZOLE 40 MG TABLET PO SCH (08:13)
[2019-10-07] MEDS: QUEtiapine 25 MG TABLET PO SCH ×2 (08:13→21:32)
[2019-10-07] MEDS: MEMANTINE 10 MG TABLET PO SCH ×2 (08:13→21:32)
[2019-10-07] MEDS: DONEPEZIL 10 MG TABLET PO SCH ×2 (08:13→21:32)
[2019-10-07] MEDS: FLUTICASONE/SALMETEROL 500-50 DISKUS 14 DOSE INH SCH ×2 (08:13→21:31)
[2019-10-07] MEDS: carvediloL 6.25 MG TABLET PO SCH ×2 (08:13→21:32)
[2019-10-07] MEDS: MULTIVITAMIN (CENTRUM) TABLET PO SCH (08:13)
[2019-10-07] MEDS: TAMSULOSIN 0.4 MG CAPSULE PO SCH (18:29)
[2019-10-07] MEDS: ATORVASTATIN 40 MG TABLET PO SCH (18:29)
[2019-10-07] MEDS: NORTRIPTYLINE 25 MG CAPSULE PO SCH (21:32)
[2019-10-08] MEDS: ALBUTEROL/IPRATROPIUM 3 ML NEB RESP TX SCH ×4 (01:31→19:44)
[2019-10-08] MEDS: methylPREDNISolone SOD SUC 40 MG/1 ML VIAL IV SCH ×2 (03:53→16:08)
[2019-10-08] MEDS: PIPERACILLIN/TAZOBACTAM 3,375 MG in SODIUM CHLORIDE 0.9% 100 ML IV SCH ×3 (04:31→20:53)
[2019-10-08 05:34] LABS: Basophils % 0.1 % (0.0-0.8); Hematocrit 32.3 VOL% (42.0-52.0); Hemoglobin 9.9 GM/DL (14.0-18.0); Immature Granulocytes Absolute 0.39 #; Lymphocytes # 0.6 10*3/uL (1.4-4.0); Lymphocytes % 4.4 % (21.2-54.2); Mean Corpuscular HGB Conc 30.7 GM/DL (32-36); Mean Corpuscular Volume 93.4 FL (87-102); Mean Platelet Volume 11.2 FL (9.6-12.0); Neutrophils % 91.5 % (38.7-73.9); Platelet Count 197 T/CUMM (130-400); Red Blood Count 3.46 MC/CUMM (3.8-5.5); Red Cell Distribution Width 17.1 % (9.3-17.3); White Blood Count 12.9 T/CUMM (4-12)
[2019-10-08 05:50] LABS: Calcium 8.8 MG/DL (8.5-10.1); Osmolality,Calculated 277.8 MOS/KG (273-304)
[2019-10-08 06:37] LABS: Anisocytosis 1+; Band Neutrophils 1 % (0-10); Lymphocytes 5 % (20-55); Platelet Estimate Adequate; Segmented Neutrophils 91 % (50-85); Total Cells Counted 100
[2019-10-08] MEDS: LOSARTAN 25 MG TABLET PO SCH (08:45)
[2019-10-08] MEDS: LACTULOSE 20 GM/30 ML UDCUP PO SCH (08:45)
[2019-10-08] MEDS: PANTOPRAZOLE 40 MG TABLET PO SCH (08:46)
[2019-10-08] MEDS: ENOXAPARIN 40 MG/0.4 ML SYRINGE SUBCUT SCH (08:46)
[2019-10-08] MEDS: carvediloL 6.25 MG TABLET PO SCH ×2 (08:46→16:08)
[2019-10-08] MEDS: DONEPEZIL 10 MG TABLET PO SCH ×2 (08:46→20:53)
[2019-10-08] MEDS: MULTIVITAMIN (CENTRUM) TABLET PO SCH (08:46)
[2019-10-08] MEDS: ASPIRIN EC 81 MG TABLET PO SCH (08:46)
[2019-10-08] MEDS: MEMANTINE 10 MG TABLET PO SCH ×2 (08:46→20:53)
[2019-10-08] MEDS: QUEtiapine 25 MG TABLET PO SCH ×2 (08:46→20:55)
[2019-10-08] MEDS: FLUTICASONE/SALMETEROL 500-50 DISKUS 14 DOSE INH SCH ×2 (12:01→20:55)
[2019-10-08] MEDS: ATORVASTATIN 40 MG TABLET PO SCH ×2 (17:27→18:02)
[2019-10-08] MEDS: TAMSULOSIN 0.4 MG CAPSULE PO SCH ×2 (17:28→18:02)
[2019-10-08] MEDS: traZODone 50 MG TABLET PO PRN (20:53)
[2019-10-08] MEDS: NORTRIPTYLINE 25 MG CAPSULE PO SCH (20:53)
[2019-10-09] MEDS: ALBUTEROL/IPRATROPIUM 3 ML NEB RESP TX SCH ×4 (01:08→19:37)
[2019-10-09] MEDS: methylPREDNISolone SOD SUC 40 MG/1 ML VIAL IV SCH (03:01)
[2019-10-09] MEDS: PIPERACILLIN/TAZOBACTAM 3,375 MG in SODIUM CHLORIDE 0.9% 100 ML IV SCH ×3 (04:54→20:13)
[2019-10-09 06:03] LABS: Calcium 8.8 MG/DL (8.5-10.1); Osmolality,Calculated 281.5 MOS/KG (273-304)
[2019-10-09 06:14] LABS: Basophils % 0.1 % (0.0-0.8); Hemoglobin 9.6 GM/DL (14.0-18.0); Immature Granulocytes Absolute 0.21 #; Lymphocytes # 0.4 10*3/uL (1.4-4.0); Lymphocytes % 6.2 % (21.2-54.2); Mean Corpuscular Volume 90.9 FL (87-102); Mean Platelet Volume 11.5 FL (9.6-12.0); Monocytes % 0.9 % (1.7-12.7); Neutrophils % 89.8 % (38.7-73.9); Platelet Count 165 T/CUMM (130-400); White Blood Count 6.9 T/CUMM (4-12)
[2019-10-09] MEDS: LOSARTAN 25 MG TABLET PO SCH (08:46)
[2019-10-09] MEDS: DONEPEZIL 10 MG TABLET PO SCH ×2 (08:46→20:14)
[2019-10-09] MEDS: MULTIVITAMIN (CENTRUM) TABLET PO SCH (08:46)
[2019-10-09] MEDS: PANTOPRAZOLE 40 MG TABLET PO SCH (08:47)
[2019-10-09] MEDS: FLUTICASONE/SALMETEROL 500-50 DISKUS 14 DOSE INH SCH ×2 (08:47→20:14)
[2019-10-09] MEDS: MEMANTINE 10 MG TABLET PO SCH ×2 (08:47→20:14)
[2019-10-09] MEDS: QUEtiapine 25 MG TABLET PO SCH ×2 (08:47→20:14)
[2019-10-09] MEDS: LACTULOSE 20 GM/30 ML UDCUP PO SCH (08:47)
[2019-10-09] MEDS: carvediloL 6.25 MG TABLET PO SCH ×2 (08:47→17:27)
[2019-10-09] MEDS: ENOXAPARIN 40 MG/0.4 ML SYRINGE SUBCUT SCH (08:47)
[2019-10-09] MEDS: ASPIRIN EC 81 MG TABLET PO SCH (08:48)
[2019-10-09] MEDS: ATORVASTATIN 40 MG TABLET PO SCH ×2 (17:27→18:13)
[2019-10-09] MEDS: TAMSULOSIN 0.4 MG CAPSULE PO SCH ×2 (17:27→18:13)
[2019-10-09] MEDS: NORTRIPTYLINE 25 MG CAPSULE PO SCH (20:13)
[2019-10-09] MEDS: traZODone 50 MG TABLET PO PRN (20:14)
[2019-10-10] MEDS: ALBUTEROL/IPRATROPIUM 3 ML NEB RESP TX SCH ×3 (00:06→14:28)
[2019-10-10] MEDS: PIPERACILLIN/TAZOBACTAM 3,375 MG in SODIUM CHLORIDE 0.9% 100 ML IV SCH (05:04)
[2019-10-10 06:00] LABS: Basophils % 0.3 % (0.0-0.8); Eosinophils % 0.4 % (0.00-10.9); Hematocrit 31.4 VOL% (42.0-52.0); Hemoglobin 9.8 GM/DL (14.0-18.0); Immature Granulocytes % 1.2 %; Immature Granulocytes Absolute 0.12 #; Lymphocytes # 1.3 10*3/uL (1.4-4.0); Lymphocytes % 12.6 % (21.2-54.2); Mean Corpuscular HGB Conc 31.2 GM/DL (32-36); Mean Corpuscular Volume 92.1 FL (87-102); Monocytes % 1.4 % (1.7-12.7); Neutrophils % 84.1 % (38.7-73.9); Platelet Count 175 T/CUMM (130-400); Red Blood Count 3.41 MC/CUMM (3.8-5.5); Red Cell Distribution Width 16.9 % (9.3-17.3); White Blood Count 10.2 T/CUMM (4-12)
[2019-10-10 06:34] LABS: Calcium 8.5 MG/DL (8.5-10.1); Osmolality,Calculated 279.5 MOS/KG (273-304)
[2019-10-10] MEDS ORDERED: predniSONE 20 MG TABLET PO SCH (09:00)
[2019-10-10] MEDS: ASPIRIN EC 81 MG TABLET PO SCH (09:38)
[2019-10-10] MEDS: carvediloL 6.25 MG TABLET PO SCH (09:38)
[2019-10-10] MEDS: QUEtiapine 25 MG TABLET PO SCH (09:38)
[2019-10-10] MEDS: MEMANTINE 10 MG TABLET PO SCH (09:38)
[2019-10-10] MEDS: DONEPEZIL 10 MG TABLET PO SCH (09:38)
[2019-10-10] MEDS: MULTIVITAMIN (CENTRUM) TABLET PO SCH (09:38)
[2019-10-10] MEDS: ENOXAPARIN 40 MG/0.4 ML SYRINGE SUBCUT SCH (09:39)
[2019-10-10] MEDS: LOSARTAN 25 MG TABLET PO SCH (09:39)
[2019-10-10] MEDS: PANTOPRAZOLE 40 MG TABLET PO SCH (09:39)
[2019-10-10] MEDS: LACTULOSE 20 GM/30 ML UDCUP PO SCH (09:44)
[2019-10-10] MEDS: FLUTICASONE/SALMETEROL 500-50 DISKUS 14 DOSE INH SCH (09:44)
[2019-10-10 12:38] VITALS: BP 133/73
== END 2019-10-10 13:25 | disposition home health service (06) | DRG 871 ==
LOC: EDBD → EDUNIT# → N.ED 03:24 → N.EDINP 05:27 → SUATTDRO 05:27 → N.ICU 06:03 → N.5E 10-07 11:10
PROVIDERS: ADMIT Internal Medicine; ATTEND Family Medicine

== ENCOUNTER 2019-12-10 18:44 | Inpatient (IN) ==
[~2019-12-10 18:44] MED LIST: AZITHROMYCIN 250 MG TABLET PO ONE
[2019-12-10 19:58] LABS: Basophils # 0.1 10*3/uL (0.0-0.2); Basophils % 0.3 % (0.0-0.8); Eosinophils # 0.1 10*3/uL (0.0-0.87); Eosinophils % 0.2 % (0.00-10.9); Hematocrit 30.9 VOL% (42.0-52.0); Hemoglobin 9.6 GM/DL (14.0-18.0); Immature Granulocytes % 4.4 %; Immature Granulocytes Absolute 0.91 #; Lymphocytes # 1.4 10*3/uL (1.4-4.0); Lymphocytes % 6.8 % (21.2-54.2); Mean Corpuscular HGB Conc 31.1 GM/DL (32-36); Mean Corpuscular Volume 94.2 FL (87-102); Mean Platelet Volume 10.5 FL (9.6-12.0); Monocytes % 1.2 % (1.7-12.7); Neutrophils % 87.1 % (38.7-73.9); Platelet Count 91 T/CUMM (130-400); Red Blood Count 3.28 MC/CUMM (3.8-5.5); Red Cell Distribution Width 17.6 % (9.3-17.3); White Blood Count 20.6 T/CUMM (4-12)
[2019-12-10] MEDS ORDERED: MEROPENEM 1,000 MG in SODIUM CHLORIDE 0.9% 100 ML IV STA (20:07)
[2019-12-10 20:13] LABS: Apearance,Urine CLEAR (Clear); Bacteria,Urine Occasional /HPF (Few); Bilirubin,Urine Negative (Negative); Blood, Urine Small mg/dL (Negative); Glucose,Urine (UA) Negative (Negative); Hyaline Casts,Urine 3 /LPF (0-3); Ketones,Urine Negative (Negative); Mucus,Urine Occasional /LPF (Occasional); Nitrite,Urine Negative (Negative); Protein,Urine Negative; RBC,Urine 3 /HPF (0-4); Squamous Epithelial Cell,Urine Occasional /HPF (0-10); Urine Color Yellow (Yellow); Urine Specific Gravity 1.015 (1.001-1.035); Urine Urobilinogen < 2.0 EU/DL (0.2-1.0); WBC,Urine 1 /HPF (0-6)
[2019-12-10 20:16] LABS: Albumin 2.3 G/DL (3.4-5.0); Bilirubin,Total 0.7 MG/DL (0.2-1.0); Calcium 8.1 MG/DL (8.5-10.1); Osmolality,Calculated 275.4 MOS/KG (273-304); Total Protein 5.5 G/DL (6.4-8.3)
[2019-12-10] MEDS ORDERED: MEROPENEM 500 MG in SODIUM CHLORIDE 0.9% 100 ML IV STA (20:18)
[2019-12-10 20:21] LABS: Band Neutrophils 7 % (0-10); Lymphocytes 7 % (20-55); Metamyelocytes 1 %; Segmented Neutrophils 85 % (50-85); Total Cells Counted 100
[2019-12-10 20:22] LABS: Anisocytosis 1+; Burr Cells Slight; Elliptocytes Few
[2019-12-10 20:23] LABS: Hypochromasia Slight; Platelet Estimate Adequate
[2019-12-10 20:37] LABS: Ferritin 365.4 ng/ml (26-388)
[2019-12-10] MEDS ORDERED: GLUCAGON 1 MG VIAL IM PRN (20:46)
[2019-12-10] MEDS ORDERED: ALUMINUM/MAGNES/SIMETH MAX STR 30 ML UDCUP PO PRN (20:58)
[2019-12-10] MEDS ORDERED: NICOTINE 21 MG/24 HR PATCH TRANSDERM PRN (20:58)
[2019-12-10] MEDS ORDERED: hydrALAZINE 20 MG/1 ML VIAL IV PRN (20:58)
[2019-12-10] MEDS ORDERED: diphenhydrAMINE CAP 25 MG CAPSULE PO PRN (20:58)
[2019-12-10] MEDS ORDERED: MORPHINE 4 MG/1 ML VIAL IV PRN (20:58)
[2019-12-10] MEDS ORDERED: ONDANSETRON 4 MG/2 ML VIAL IV PRN (20:58)
[2019-12-10] MEDS ORDERED: guaiFENesin/DM ER 600-30 MG TABLET PO PRN (20:58)
[2019-12-10] MEDS ORDERED: DEXTROSE 10% 250 ML BAG IV PRN (21:15)
[2019-12-10] MEDS ORDERED: ENOXAPARIN 100 MG/ML SYRINGE SUBCUT ONE (21:30)
[2019-12-10] MEDS ORDERED: AZITHROMYCIN 250 MG TABLET PO ONE (21:30)
[2019-12-11] MEDS: VANCOMYCIN INJ 1,500 MG in SODIUM CHLORIDE 0.9% 500 ML IV SCH (00:30)
[2019-12-11] MEDS: AZITHROMYCIN 250 MG TABLET PO SCH (09:05)
[2019-12-11] MEDS ORDERED: ALBUTEROL SULFATE INH PRN (12:23)
[2019-12-11 12:41] LABS: Basophils # 0.1 10*3/uL (0.0-0.2); Basophils % 0.4 % (0.0-0.8); Eosinophils # 0.2 10*3/uL (0.0-0.87); Eosinophils % 1.2 % (0.00-10.9); Hematocrit 34.1 VOL% (42.0-52.0); Hemoglobin 10.4 GM/DL (14.0-18.0); Immature Granulocytes % 1.9 %; Immature Granulocytes Absolute 0.29 #; Lymphocytes # 1.1 10*3/uL (1.4-4.0); Lymphocytes % 6.9 % (21.2-54.2); Mean Corpuscular HGB Conc 30.5 GM/DL (32-36); Mean Corpuscular Volume 94.7 FL (87-102); Mean Platelet Volume 11.7 FL (9.6-12.0); Monocytes % 1.5 % (1.7-12.7); Neutrophils % 88.1 % (38.7-73.9); Platelet Count 103 T/CUMM (130-400); Red Cell Distribution Width 17.7 % (9.3-17.3); White Blood Count 15.5 T/CUMM (4-12)
[2019-12-11 13:07] LABS: Albumin 2.7 G/DL (3.4-5.0); Bilirubin,Total 1.3 MG/DL (0.2-1.0); Calcium 8.8 MG/DL (8.5-10.1); Osmolality,Calculated 276.1 MOS/KG (273-304); Total Protein 6.5 G/DL (6.4-8.3)
[2019-12-11 13:38] LABS: Band Neutrophils 1 % (0-10); Eosinophils 2 % (0-10); Hypochromasia Slight; Lymphocytes 8 % (20-55); Platelet Estimate Adequate; Segmented Neutrophils 86 % (50-85); Total Cells Counted 100
[2019-12-11] MEDS: SODIUM CHLORIDE 0.9% 1,000 ML IV SCH (17:19)
[2019-12-11] MEDS: NORTRIPTYLINE 25 MG CAPSULE PO SCH (20:48)
[2019-12-11] MEDS: TAMSULOSIN 0.4 MG CAPSULE PO SCH (20:48)
[2019-12-11] MEDS: carvediloL 6.25 MG TABLET PO SCH (20:48)
[2019-12-11] MEDS: QUEtiapine 25 MG TABLET PO SCH (20:48)
[2019-12-11] MEDS: FLUTICASONE/SALMETEROL 500-50 DISKUS 14 DOSE INH SCH (20:48)
[2019-12-12] MEDS: SODIUM CHLORIDE 0.9% 1,000 ML IV SCH ×2 (01:50→08:00)
[2019-12-12 04:36] LABS: Basophils % 0.4 % (0.0-0.8); Eosinophils # 0.2 10*3/uL (0.0-0.87); Eosinophils % 2.2 % (0.00-10.9); Hematocrit 26.7 VOL% (42.0-52.0); Hemoglobin 8.4 GM/DL (14.0-18.0); Immature Granulocytes % 0.9 %; Immature Granulocytes Absolute 0.09 #; Lymphocytes # 1.2 10*3/uL (1.4-4.0); Lymphocytes % 11.9 % (21.2-54.2); Mean Corpuscular HGB Conc 31.5 GM/DL (32-36); Mean Corpuscular Volume 91.8 FL (87-102); Mean Platelet Volume 11.5 FL (9.6-12.0); Monocytes % 2.5 % (1.7-12.7); Neutrophils % 82.1 % (38.7-73.9); Red Blood Count 2.91 MC/CUMM (3.8-5.5); Red Cell Distribution Width 17.7 % (9.3-17.3); White Blood Count 10.2 T/CUMM (4-12)
[2019-12-12 04:46] LABS: Platelet Count 88 T/CUMM (130-400)
[2019-12-12 05:00] LABS: Calcium 8.7 MG/DL (8.5-10.1); Osmolality,Calculated 282.4 MOS/KG (273-304)
[2019-12-12 05:33] LABS: Hypochromasia 1+
[2019-12-12 05:34] LABS: Microcytosis 1+
[2019-12-12] MEDS ORDERED: ASPIRIN CHEW 81 MG TABLET PO ONE (07:25)
[2019-12-12] MEDS: ATORVASTATIN 40 MG TABLET PO SCH (09:09)
[2019-12-12] MEDS: DONEPEZIL 10 MG TABLET PO SCH (09:09)
[2019-12-12] MEDS: ASPIRIN EC 81 MG TABLET PO SCH (09:09)
[2019-12-12] MEDS: carvediloL 6.25 MG TABLET PO SCH ×2 (09:09→21:38)
[2019-12-12] MEDS: AZITHROMYCIN 250 MG TABLET PO SCH (09:10)
[2019-12-12] MEDS: QUEtiapine 25 MG TABLET PO SCH ×2 (09:10→21:38)
[2019-12-12] MEDS: FLUTICASONE/SALMETEROL 500-50 DISKUS 14 DOSE INH SCH ×2 (09:38→21:38)
[2019-12-12] MEDS: CEFEPIME 1,000 MG in SODIUM CHLORIDE 0.9% 100 ML IV SCH ×3 (09:38→21:38)
[2019-12-12] MEDS: VANCOMYCIN INJ 1,500 MG in SODIUM CHLORIDE 0.9% 500 ML IV SCH (11:50)
[2019-12-12 13:29] LABS: Hematocrit 27.3 VOL% (42.0-52.0); Hemoglobin 8.5 GM/DL (14.0-18.0)
[2019-12-12] MEDS: TAMSULOSIN 0.4 MG CAPSULE PO SCH ×2 (19:10→21:38)
[2019-12-12] MEDS: NORTRIPTYLINE 25 MG CAPSULE PO SCH (21:38)
[2019-12-12 22:32] LABS: Hemoglobin 8.8 GM/DL (14.0-18.0)
[2019-12-13] MEDS: CEFEPIME 1,000 MG in SODIUM CHLORIDE 0.9% 100 ML IV SCH ×4 (04:35→21:53)
[2019-12-13 06:29] LABS: Basophils # 0.1 10*3/uL (0.0-0.2); Basophils % 0.6 % (0.0-0.8); Eosinophils # 0.5 10*3/uL (0.0-0.87); Hemoglobin 8.4 GM/DL (14.0-18.0); Immature Granulocytes % 0.7 %; Immature Granulocytes Absolute 0.06 #; Lymphocytes # 1.4 10*3/uL (1.4-4.0); Lymphocytes % 15.5 % (21.2-54.2); Mean Corpuscular Volume 96.2 FL (87-102); Monocytes % 4.3 % (1.7-12.7); Neutrophils % 73.9 % (38.7-73.9); Platelet Count 101 T/CUMM (130-400); Red Blood Count 2.91 MC/CUMM (3.8-5.5); Red Cell Distribution Width 17.8 % (9.3-17.3); White Blood Count 9.1 T/CUMM (4-12)
[2019-12-13 06:54] LABS: Calcium 8.6 MG/DL (8.5-10.1); Osmolality,Calculated 280.4 MOS/KG (273-304)
[2019-12-13] MEDS: SODIUM CHLORIDE 0.9% 1,000 ML IV SCH (07:00)
[2019-12-13] MEDS: carvediloL 6.25 MG TABLET PO SCH ×2 (09:12→21:52)
[2019-12-13] MEDS: DONEPEZIL 10 MG TABLET PO SCH (09:12)
[2019-12-13] MEDS: ASPIRIN EC 81 MG TABLET PO SCH (09:12)
[2019-12-13] MEDS: FLUTICASONE/SALMETEROL 500-50 DISKUS 14 DOSE INH SCH ×2 (09:12→21:52)
[2019-12-13] MEDS: ATORVASTATIN 40 MG TABLET PO SCH (09:13)
[2019-12-13] MEDS: QUEtiapine 25 MG TABLET PO SCH ×2 (09:29→21:53)
[2019-12-13] MEDS: AZITHROMYCIN 250 MG TABLET PO SCH (09:30)
[2019-12-13 14:29] LABS: Hematocrit 27.2 VOL% (42.0-52.0); Hemoglobin 8.4 GM/DL (14.0-18.0)
[2019-12-13] MEDS: VANCOMYCIN INJ 1,500 MG in SODIUM CHLORIDE 0.9% 500 ML IV SCH (17:50)
[2019-12-13] MEDS: TAMSULOSIN 0.4 MG CAPSULE PO SCH (21:52)
[2019-12-13] MEDS: NORTRIPTYLINE 25 MG CAPSULE PO SCH (21:53)
[2019-12-14] MEDS: CEFEPIME 1,000 MG in SODIUM CHLORIDE 0.9% 100 ML IV SCH ×4 (03:59→20:00)
[2019-12-14] MEDS: QUEtiapine 25 MG TABLET PO SCH ×2 (08:39→20:00)
[2019-12-14] MEDS: ATORVASTATIN 40 MG TABLET PO SCH (08:39)
[2019-12-14] MEDS: DONEPEZIL 10 MG TABLET PO SCH (08:39)
[2019-12-14] MEDS: ASPIRIN EC 81 MG TABLET PO SCH (08:39)
[2019-12-14] MEDS: FLUTICASONE/SALMETEROL 500-50 DISKUS 14 DOSE INH SCH ×2 (08:39→20:00)
[2019-12-14] MEDS: carvediloL 6.25 MG TABLET PO SCH ×2 (08:39→20:00)
[2019-12-14] MEDS: AZITHROMYCIN 250 MG TABLET PO SCH (08:39)
[2019-12-14] MEDS: ACETAMINOPHEN 325 MG TABLET PO PRN ×2 (09:47→14:36)
[2019-12-14] MEDS: SODIUM CHLORIDE 0.9% 1,000 ML IV SCH (12:40)
[2019-12-14] MEDS: VANCOMYCIN INJ 1,500 MG in SODIUM CHLORIDE 0.9% 500 ML IV SCH (16:03)
[2019-12-14] MEDS: NORTRIPTYLINE 25 MG CAPSULE PO SCH (20:00)
[2019-12-14] MEDS: TAMSULOSIN 0.4 MG CAPSULE PO SCH (20:00)
[2019-12-15] MEDS: CEFEPIME 1,000 MG in SODIUM CHLORIDE 0.9% 100 ML IV SCH (03:04)
[2019-12-15 05:51] LABS: Basophils % 0.5 % (0.0-0.8); Eosinophils # 0.3 10*3/uL (0.0-0.87); Eosinophils % 4.2 % (0.00-10.9); Hematocrit 27.1 VOL% (42.0-52.0); Hemoglobin 8.6 GM/DL (14.0-18.0); Immature Granulocytes % 0.8 %; Immature Granulocytes Absolute 0.06 #; Lymphocytes # 1.3 10*3/uL (1.4-4.0); Lymphocytes % 17.3 % (21.2-54.2); Mean Corpuscular HGB Conc 31.7 GM/DL (32-36); Mean Corpuscular Volume 92.5 FL (87-102); Monocytes % 7.5 % (1.7-12.7); Neutrophils % 69.7 % (38.7-73.9); Platelet Count 124 T/CUMM (130-400); Red Blood Count 2.93 MC/CUMM (3.8-5.5); Red Cell Distribution Width 17.5 % (9.3-17.3); White Blood Count 7.5 T/CUMM (4-12)
[2019-12-15 06:09] LABS: Calcium 8.7 MG/DL (8.5-10.1); Osmolality,Calculated 275.7 MOS/KG (273-304)
[2019-12-15] MEDS: SODIUM CHLORIDE 0.9% 1,000 ML IV SCH ×2 (06:33→12:27)
[2019-12-15] MEDS ORDERED: LEVOFLOXACIN 750 MG TABLET PO SCH (09:00)
[2019-12-15] MEDS: FLUTICASONE/SALMETEROL 500-50 DISKUS 14 DOSE INH SCH (09:18)
[2019-12-15] MEDS: carvediloL 6.25 MG TABLET PO SCH (09:18)
[2019-12-15] MEDS: ASPIRIN EC 81 MG TABLET PO SCH (09:18)
[2019-12-15] MEDS: DONEPEZIL 10 MG TABLET PO SCH (09:18)
[2019-12-15] MEDS: QUEtiapine 25 MG TABLET PO SCH (09:19)
[2019-12-15] MEDS: ATORVASTATIN 40 MG TABLET PO SCH (09:19)
[2019-12-15] MEDS: ACETAMINOPHEN 325 MG TABLET PO PRN (10:35)
[2019-12-15 12:27] VITALS: BP 161/72
== END 2019-12-15 14:58 | disposition home health service (06) | DRG 193 ==
LOC: EDUNIT# → EDBD → N.ED 18:44 → SUPCPDRO 20:58 → N.EDINP 20:58 → N.2E 21:24
PROVIDERS: ADMIT Family Medicine; ATTEND Family Medicine

== ENCOUNTER 2020-03-02 22:09 | Inpatient (IN) ==
[2020-03-02] MEDS ORDERED: SODIUM CHLORIDE 0.9% 1,000 ML IV STA (22:43)
[2020-03-02 23:00] LABS: Basophils # 0.1 10*3/uL (0.0-0.2); Basophils % 0.3 % (0.0-0.8); Eosinophils # 0.1 10*3/uL (0.0-0.87); Eosinophils % 0.4 % (0.00-10.9); Hematocrit 36.5 VOL% (42.0-52.0); Hemoglobin 11.4 GM/DL (14.0-18.0); Immature Granulocytes % 1.6 %; Immature Granulocytes Absolute 0.29 #; Lymphocytes # 0.7 10*3/uL (1.4-4.0); Lymphocytes % 4.1 % (21.2-54.2); Mean Corpuscular HGB Conc 31.2 GM/DL (32-36); Mean Corpuscular Volume 93.6 FL (87-102); Mean Platelet Volume 10.4 FL (9.6-12.0); Monocytes % 0.7 % (1.7-12.7); Neutrophils % 92.9 % (38.7-73.9); Platelet Count 117 T/CUMM (130-400)
[2020-03-02] MEDS ORDERED: VANCOMYCIN INJ 1,000 MG in SODIUM CHLORIDE 0.9% 250 ML IV STA (23:00)
[2020-03-02] MEDS ORDERED: CEFEPIME 1,000 MG in SODIUM CHLORIDE 0.9% 100 ML IV STA (23:00)
[2020-03-02 23:07] LABS: Albumin 3.1 G/DL (3.4-5.0); Bilirubin,Total 0.5 MG/DL (0.2-1.0); Calcium 8.4 MG/DL (8.5-10.1); Ferritin 121.1 ng/ml (26-388); Osmolality,Calculated 271.2 MOS/KG (273-304)
[2020-03-02] MEDS ORDERED: ACETAMINOPHEN 500 MG TABLET PO STA (23:29)
[2020-03-02] MEDS ORDERED: SODIUM CHLORIDE 0.9% 1,000 ML IV ONE (23:43)
[2020-03-02] MEDS ORDERED: hydrALAZINE 20 MG/1 ML VIAL IV PRN (23:47)
[2020-03-02] MEDS ORDERED: guaiFENesin/DM ER 600-30 MG TABLET PO PRN (23:47)
[2020-03-02] MEDS ORDERED: PROMETHAZINE 25 MG/1 ML VIAL IM PRN (23:47)
[2020-03-02] MEDS ORDERED: DEXTROSE 50% 25 GM/50 ML VIAL IV PRN (23:47)
[2020-03-02] MEDS ORDERED: ONDANSETRON 4 MG/2 ML VIAL IV PRN (23:47)
[2020-03-02] MEDS ORDERED: NICOTINE 21 MG/24 HR PATCH TRANSDERM PRN (23:47)
[2020-03-02] MEDS ORDERED: MORPHINE 4 MG/1 ML VIAL IV PRN (23:47)
[2020-03-02] MEDS ORDERED: GLUCAGON 1 MG VIAL IM PRN (23:47)
[2020-03-02] MEDS ORDERED: diphenhydrAMINE CAP 25 MG CAPSULE PO PRN (23:47)
[2020-03-03] MEDS ORDERED: ALBUTEROL INHALER 18 GM INH PRN (01:26)
[2020-03-03] MEDS ORDERED: ALBUTEROL 2.5 MG/3 ML NEB RESP TX PRN (03:00)
[2020-03-03 03:29] LABS: Lymphocytes 3 % (20-55); Metamyelocytes 2 %; Segmented Neutrophils 95 % (50-85)
[2020-03-03 03:30] LABS: Platelet Estimate Adequate
[2020-03-03 03:31] LABS: Total Cells Counted 100
[2020-03-03] MEDS: SODIUM CHLORIDE 0.9% 1,000 ML IV SCH ×2 (04:02→22:21)
[2020-03-03] MEDS: AZITHROMYCIN INJ 500 MG in SODIUM CHLORIDE 0.9% 250 ML IV SCH (04:15)
[2020-03-03 05:22] LABS: Basophils # 0.1 10*3/uL (0.0-0.2); Basophils % 0.3 % (0.0-0.8); Eosinophils % 0.1 % (0.00-10.9); Hematocrit 31.3 VOL% (42.0-52.0); Hemoglobin 9.6 GM/DL (14.0-18.0); Immature Granulocytes % 6.9 %; Immature Granulocytes Absolute 1.25 #; Lymphocytes % 5.5 % (21.2-54.2); Mean Corpuscular HGB Conc 30.7 GM/DL (32-36); Mean Corpuscular Volume 95.7 FL (87-102); Mean Platelet Volume 10.9 FL (9.6-12.0); Monocytes % 0.9 % (1.7-12.7); Neutrophils % 86.3 % (38.7-73.9); Red Blood Count 3.27 MC/CUMM (3.8-5.5); Red Cell Distribution Width 16.8 % (9.3-17.3)
[2020-03-03 05:32] LABS: Platelet Count 93 T/CUMM (130-400)
[2020-03-03 05:50] LABS: Band Neutrophils 2 % (0-10); Lymphocytes 6 % (20-55); Metamyelocytes 2 %; Myelocytes 2 %; Segmented Neutrophils 86 % (50-85); Total Cells Counted 100
[2020-03-03 05:51] LABS: Anisocytosis 1+; Hypochromasia 1+; Ovalocytes Slight; Platelet Estimate Decreased
[2020-03-03 06:07] LABS: Calcium 7.7 MG/DL (8.5-10.1); Osmolality,Calculated 277.7 MOS/KG (273-304)
[2020-03-03] MEDS: CEFEPIME 1,000 MG in SODIUM CHLORIDE 0.9% 100 ML IV SCH ×3 (06:18→17:31)
[2020-03-03] MEDS: DOCUSATE SODIUM 100 MG CAPSULE PO SCH ×2 (09:13→22:09)
[2020-03-03] MEDS: PANTOPRAZOLE 40 MG TABLET PO SCH (09:13)
[2020-03-03] MEDS: ENOXAPARIN 40 MG/0.4 ML SYRINGE SUBCUT SCH (09:13)
[2020-03-03] MEDS: ALBUTEROL 2.5 MG/3 ML NEB RESP TX SCH ×3 (10:55→19:51)
[2020-03-03] MEDS: ACETAMINOPHEN 325 MG TABLET PO PRN (17:34)
[2020-03-03] MEDS: VANCOMYCIN INJ 1,250 MG in SODIUM CHLORIDE 0.9% 250 ML IV SCH (22:09)
[2020-03-04] MEDS: CEFEPIME 1,000 MG in SODIUM CHLORIDE 0.9% 100 ML IV SCH ×4 (00:47→18:14)
[2020-03-04] MEDS: ALBUTEROL 2.5 MG/3 ML NEB RESP TX SCH ×4 (01:32→19:44)
[2020-03-04] MEDS: AZITHROMYCIN INJ 500 MG in SODIUM CHLORIDE 0.9% 250 ML IV SCH (02:13)
[2020-03-04 06:14] LABS: Calcium 8.9 MG/DL (8.5-10.1); Osmolality,Calculated 277.5 MOS/KG (273-304)
[2020-03-04] MEDS: DOCUSATE SODIUM 100 MG CAPSULE PO SCH ×2 (08:45→21:04)
[2020-03-04] MEDS: ENOXAPARIN 40 MG/0.4 ML SYRINGE SUBCUT SCH (08:45)
[2020-03-04] MEDS: PANTOPRAZOLE 40 MG TABLET PO SCH (08:45)
[2020-03-04 09:09] LABS: Basophils # 0.1 10*3/uL (0.0-0.2); Basophils % 0.4 % (0.0-0.8); Eosinophils # 0.1 10*3/uL (0.0-0.87); Eosinophils % 0.9 % (0.00-10.9); Hematocrit 32.3 VOL% (42.0-52.0); Hemoglobin 10.1 GM/DL (14.0-18.0); Immature Granulocytes % 2.4 %; Immature Granulocytes Absolute 0.33 #; Lymphocytes # 1.1 10*3/uL (1.4-4.0); Lymphocytes % 7.8 % (21.2-54.2); Mean Corpuscular HGB Conc 31.3 GM/DL (32-36); Mean Corpuscular Volume 93.6 FL (87-102); Mean Platelet Volume 10.5 FL (9.6-12.0); Monocytes % 1.2 % (1.7-12.7); Neutrophils % 87.3 % (38.7-73.9); Red Blood Count 3.45 MC/CUMM (3.8-5.5)
[2020-03-04 09:11] LABS: Platelet Count 92 T/CUMM (130-400)
[2020-03-04 09:57] LABS: Band Neutrophils 4 % (0-10); Eosinophils 1 % (0-10); Hypochromasia 1+; Lymphocytes 9 % (20-55); Metamyelocytes 1 %; Myelocytes 1 %; Segmented Neutrophils 82 % (50-85); Total Cells Counted 100
[2020-03-04 09:58] LABS: Anisocytosis 1+; Ovalocytes Slight; Platelet Estimate Decreased
[2020-03-04] MEDS: ACETAMINOPHEN 325 MG TABLET PO PRN (14:10)
[2020-03-04] MEDS: SODIUM CHLORIDE 0.9% 1,000 ML IV SCH ×2 (18:15→21:03)
[2020-03-04] MEDS: VANCOMYCIN INJ 1,250 MG in SODIUM CHLORIDE 0.9% 250 ML IV SCH (21:02)
[2020-03-05] MEDS: CEFEPIME 1,000 MG in SODIUM CHLORIDE 0.9% 100 ML IV SCH ×3 (00:40→14:05)
[2020-03-05] MEDS: AZITHROMYCIN INJ 500 MG in SODIUM CHLORIDE 0.9% 250 ML IV SCH (02:05)
[2020-03-05] MEDS: ALBUTEROL 2.5 MG/3 ML NEB RESP TX SCH ×3 (02:51→14:50)
[2020-03-05 05:20] LABS: Basophils % 0.3 % (0.0-0.8); Eosinophils # 0.2 10*3/uL (0.0-0.87); Eosinophils % 1.9 % (0.00-10.9); Hematocrit 29.5 VOL% (42.0-52.0); Hemoglobin 9.6 GM/DL (14.0-18.0); Immature Granulocytes % 1.3 %; Immature Granulocytes Absolute 0.12 #; Lymphocytes # 0.9 10*3/uL (1.4-4.0); Lymphocytes % 9.7 % (21.2-54.2); Mean Corpuscular HGB Conc 32.5 GM/DL (32-36); Mean Corpuscular Volume 91.3 FL (87-102); Mean Platelet Volume 11.6 FL (9.6-12.0); Monocytes % 2.2 % (1.7-12.7); Neutrophils % 84.6 % (38.7-73.9); Red Blood Count 3.23 MC/CUMM (3.8-5.5); Red Cell Distribution Width 17.1 % (9.3-17.3); White Blood Count 9.1 T/CUMM (4-12)
[2020-03-05 05:26] LABS: Platelet Count 99 T/CUMM (130-400)
[2020-03-05 05:45] LABS: Band Neutrophils 2 % (0-10); Eosinophils 2 % (0-10); Hypochromasia Slight; Lymphocytes 8 % (20-55); Metamyelocytes 1 %; Segmented Neutrophils 86 % (50-85); Total Cells Counted 100
[2020-03-05 05:46] LABS: Anisocytosis 1+; Ovalocytes Few; Platelet Estimate Decreased
[2020-03-05 05:50] LABS: Calcium 8.7 MG/DL (8.5-10.1); Osmolality,Calculated 272.8 MOS/KG (273-304)
[2020-03-05] MEDS: SODIUM CHLORIDE 0.9% 1,000 ML IV SCH (07:42)
[2020-03-05] MEDS: ACETAMINOPHEN 325 MG TABLET PO PRN (09:48)
[2020-03-05] MEDS: DOCUSATE SODIUM 100 MG CAPSULE PO SCH (09:50)
[2020-03-05] MEDS: ENOXAPARIN 40 MG/0.4 ML SYRINGE SUBCUT SCH (09:50)
[2020-03-05] MEDS: PANTOPRAZOLE 40 MG TABLET PO SCH (09:50)
[2020-03-05] MEDS ORDERED: MAGNESIUM OXIDE 400 MG TABLET PO ONE (11:05)
[2020-03-05 11:39] VITALS: BP 174/92
== END 2020-03-05 14:53 | disposition home health service (06) | DRG 871 ==
LOC: EDUNIT# → EDBD → N.ED 22:09 → SUATTDRO 23:47 → N.EDINP 23:47 → N.CC 03-03 01:16 → N.TELES 03-03 02:16
PROVIDERS: ADMIT Internal Medicine; ATTEND Family Medicine

== ENCOUNTER 2021-05-23 15:37 | Observation (INO) ==
[2021-05-23 17:19] LABS: Basophils % 0.3 % (0.0-0.8); Eosinophils % 0.1 % (0.00-10.9); Hematocrit 36.3 VOL% (42.0-52.0); Immature Granulocytes % 0.7 %; Immature Granulocytes Absolute 0.08 #; Lymphocytes # 0.7 10*3/uL (1.4-4.0); Lymphocytes % 6.3 % (21.2-54.2); Mean Corpuscular HGB Conc 30.3 GM/DL (32-36); Mean Corpuscular Volume 92.8 FL (87-102); Monocytes % 2.9 % (1.7-12.7); Neutrophils % 89.7 % (38.7-73.9); Platelet Count 163 T/CUMM (130-400); Red Blood Count 3.91 MC/CUMM (3.8-5.5); Red Cell Distribution Width 18.1 % (9.3-17.3); White Blood Count 11.2 T/CUMM (4-12)
[2021-05-23 17:39] LABS: Alanine Aminotransferase 18 U/L (16-61); Albumin 2.9 G/DL (3.4-5.0); Alkaline Phosphatase 113 U/L (45-117); Aspartate Amino Transferase 17 U/L (0-37); Bilirubin,Total < 0.39 MG/DL (0.20-1.00); Blood Urea Nitrogen 14 MG/DL (7-18); Calcium 9.1 MG/DL (8.5-10.1); Carbon Dioxide 26 MMOL/L (21-32); Estimated Glom Filtration Rate 56 ML/MIN; Glucose 129 MG/DL (74-106); Potassium 4.2 MMOL/L (3.5-5.1); Sodium 136 MMOL/L (136-145); Total Protein 6.6 G/DL (6.4-8.2)
[2021-05-23 17:53] LABS: Bacteria,Urine Occasional /HPF (Few); Bilirubin,Urine Negative (Negative); Blood, Urine Negative (Negative); Glucose,Urine (UA) Negative (Negative); Ketones,Urine Negative (Negative); Nitrite,Urine Negative (Negative); Protein,Urine Negative; Squamous Epithelial Cell,Urine Occasional /HPF (0-10); Urine Appearance CLEAR (Clear); Urine Color Straw (Yellow); Urine Specific Gravity 1.005 (1.001-1.035); Urine Urobilinogen < 2.0 EU/DL (0.2-1.0)
[2021-05-23] MEDS ORDERED: CALCIUM CARBONATE CHEW 500 MG TABLET PO PRN (18:59)
[2021-05-23] MEDS ORDERED: ONDANSETRON 4 MG/2 ML VIAL IV PRN (18:59)
[2021-05-23] MEDS ORDERED: ACETAMINOPHEN 325 MG TABLET PO PRN (18:59)
[2021-05-23] MEDS ORDERED: ENOXAPARIN 40 MG/0.4 ML SYRINGE SUBCUT SCH (19:00)
[2021-05-23] MEDS ORDERED: DONEPEZIL 10 MG TABLET PO SCH (21:00)
[2021-05-23] MEDS: predniSONE 10 MG TABLET PO SCH (21:24)
[2021-05-23] MEDS: QUEtiapine 25 MG TABLET PO SCH (21:24)
[2021-05-24] MEDS ORDERED: ATORVASTATIN 40 MG TABLET PO SCH (09:00)
[2021-05-24] MEDS: QUEtiapine 25 MG TABLET PO SCH (09:00)
[2021-05-24] MEDS ORDERED: LOSARTAN 25 MG TABLET PO SCH (09:00)
[2021-05-24] MEDS: predniSONE 10 MG TABLET PO SCH (09:00)
[2021-05-24 15:46] VITALS: BP 114/73
[2021-05-24] MEDS ORDERED: PANTOPRAZOLE 40 MG TABLET PO SCH (21:00)
[2021-05-24] MEDS ORDERED: TAMSULOSIN 0.4 MG CAPSULE PO SCH (21:00)
== END 2021-05-24 17:45 ==
LOC: EDBD → EDUNIT# → N.ED 15:37 → N.EDINP 15:37 → N.5E 21:03
PROVIDERS: ADMIT Internal Medicine Geriatric Medicine; ATTEND Internal Medicine Geriatric Medicine